=== PATIENT | male | born 1955 | race Caucasian/White ===

== ENCOUNTER 2017-02-14 12:36 | Inpatient (IN) | payer OTHER ==
--- NOTE | 2017-02-14 12:58 | CPEKG ---
Heart Rate: 134 RR Interval: 448 QRSD Interval: 102 QT Interval: 320 QTC Interval: 478 QRS [place] [facility]: 4 T Wave [facility]: 69 EKG Severity - ABNORMAL ECG - EKG Impression: ATRIAL FIBRILLATION EKG Impression: BORDERLINE PROLONGED QT INTERVAL Electronically Signed By: Ibrahima Ram 14-Feb-2017 20:35:31
[2017-02-14 13:24] LABS: % IMMATURE GRANULYOCYTES 1.9 % (0.0-1.1); ABSOLUTE IMMATURE GRANULOCYTES 0.18 10^3/uL (0.00-0.10); ADD DIFF? NO; ADD MORPH? NO; ADD SCAN? NO; ATYPICAL LYMPHOCYTE FLAG 50 (0-99); FRAGMENT RBC FLAG 0 (0-99); HEMATOCRIT 45.7 % (40.0-51.0); HEMOGLOBIN 16.2 g/dL (13.7-17.5); LEFT SHIFT FLG 10 (0-99); LIPEMIA HEMOLYSIS FLAG 90 (0-99); MEAN CELL HEMOGLOBIN CONCENTR. 35.4 g/dL (32.4-36.7); MEAN CELL VOLUME 95.8 fL (81.5-99.8); MEAN PLATELET VOLUME 9.7 fL (8.7-11.7); PLATELET CLUMPS FLAG 10 (0-99); PLATELET COUNT 113 10^3/uL (150-400); RED BLOOD CELL COUNT 4.77 10^6/uL (4.40-6.38); RED CELL DISTRIBUTION WIDTH 13.7 % (11.5-15.2)
[2017-02-14] MEDS ORDERED: DILTIAZEM 25 MG/5 ML VIAL IVP ONE (13:26)
[2017-02-14] MEDS ORDERED: ENOXAPARIN 120 MG/0.8 ML SYR SC ONE (13:27)
[2017-02-14 13:32] LABS: INR 1.56 (0.83-1.16); PROTIME(PATIENT) 18.7 SEC (12.0-15.0)
[2017-02-14 13:33] LABS: APTT 36.5 SEC (23.0-38.0)
--- NOTE | 2017-02-14 13:33 | EDPHY ---
H & P Stated Complaint: RUQ abd pain radiating to R shoulder Time Seen by Provider: 02/14/17 13:08 - Personal History Current Tetanus/Diphtheria Vaccine: Yes Current Tetanus Diphtheria and Acellular Pertussis (TDAP): Yes - Medical/Surgical History Hx Asthma: No Hx Chronic Respiratory Disease: No Hx Diabetes: No Hx Cardiac Disease: No Hx Renal Disease: No Hx Cirrhosis: Yes Hx Alcoholism: No Hx HIV/AIDS: No Hx Splenectomy or Spleen Trauma: No Other PMH: Hepatitis C, Chronic cirrhosis, cholecystectomy, R knee scope, tonsillectomy - Social History Smoking Status: Former smoker Constitutional: Initial Vital Signs Temperature (C) 36.8 C 02/14/17 12:52 Heart Rate 127 H 02/14/17 12:52 Respiratory Rate 14 02/14/17 12:52 Blood Pressure 119/103 H 02/14/17 12:52 O2 Sat (%) 93 02/14/17 12:52 O2 Delivery Mode Nasal Cannula O2 (L/minute) 2 Allergies/Adverse Reactions: No Known Allergies Allergy (Verified 02/14/17 12:51) Home Medications: Medication Instructions Recorded NK [No Known Home Meds] 02/14/17 Medical Decision Making ED Course/Re-evaluation: CHIEF COMPLAINT: Nausea and right shoulder pain HISTORY OF PRESENT ILLNESS: This patient presents the emergency department with for 5 days of nausea and 3 days of right shoulder pain. As we are checking him in realize that he was also and a rapid heart rhythm. Patient denies chest pressure chest pain chest tightness. The only pain is in the right shoulder and he calls it a soreness achiness or tightness. He denies pain in his neck or jaws or anywhere else in his extremities. He has never had symptoms like this before. He does not see any doctors. He is not on any medicines and denies any medical history. He does not believe that he has ever felt a rapid rhythm once I pointed out to him. REVIEW OF SYSTEMS: A 10 point review of systems was performed and is negative with the exception of the elements mentioned in the history of present illness. PHYSICAL EXAM: HR, BP, O2 Sat, RR. Temp noted General Appearance: Alert, well hydrated, appropriate, and non-toxic appearing. Head: Atraumatic without scalp tenderness or obvious injury Eyes: Pupils equal, round, reactive to light and accommodation, EOMI, no trauma , no injection. Ears: Clear bilaterally, no perforation, normal landmarks Nose: Atraumatic, no rhinorrhea, clear. Throat: There is no erythema or exudates, no lesions, normal tonsils, mucus membranes moist. Neck: Supple, 2+ carotid upstroke, nontender, no lymphadenopathy. Respiratory: No retractions, no distress, no wheezes, and no accessory muscle use. Lungs are clear to auscultation bilaterally. Cardiovascular: Irregularly irregular rate and rhythm at approximately 103,250 , no murmurs, rubs, or gallops. Bilateral carotid, radial, dorsalis pedis, and posterior tibial pulses intact. Good capillary refill all extremities. Gastrointestinal: Abdomen is soft, nontender, non-distended, no masses, no rebound, no guarding, no peritoneal signs. Musculoskeletal: Normal active ROM of all extremities, atraumatic. Neurological: Alert, appropriate, and interactive. The patient has normal DTRs and non-focal cranial nerves, motor, sensory, and cerebellar exam. Skin: No rashes, good turgor, no nodules on palpation. Past medical history: Patient denies Past surgical history: Cholecystectomy, hepatitis-C which she was told resolved he was diagnosed 16 years ago, chronic venous stasis changes right leg Family history: Denies any Cardiovascular history in first-degree relatives Social history: Single, employed, does not abuse tobacco drugs or alcohol DIAGNOSTICS/PROCEDURES/CRITICAL CARE TIME: The 12 lead EKG was interpreted by myself. See hard copy and/or "tracemaster" electronic copy for interpretation. Atrial fibrillation at a rate of between 130 in her 50 ventricular rate DIFFERENTIAL DIAGNOSIS: The differential diagnosis for the patient's narrow complex tachycardia included but was not limited to various causes of sinus tachycardia such as dehydration and medicines, SVT, atrial flutter, atrial fibrillation, pulmonary causes. MEDICAL DECISION MAKING: This patient appears to have a new onset atrial fibrillation. My guess is that it started 3-5 days ago when the patient 1st started getting a right shoulder ache and then subsequently developed nausea and loss of appetite. He has really no other symptoms at this time. I have given this patient 20 mg of diltiazem intravenously and started him on diltiazem drip. I also given him Lovenox 1 milligram/kilogram subcutaneously. I am waiting for his laboratory studies and I will consult Cardiology and the hospitalist for admission. Rate is significantly improved on diltiazem. Patient has chronic venous stasis changes the right leg and potentially a DVT. I am doing an ultrasound. Patient states that this is chronic. - Data Points Laboratory Results: Laboratory Results 02/14/17 13:05 02/14/17 13:05 02/14/17 02/14/17 02/14/17 13:05 13:05 13:05 WBC 9.53 10^3/uL H 10^3/uL (3.80-9.50) RBC 4.77 10^6/uL 10^6/uL (4.40-6.38) Hgb 16.2 g/dL g/dL (13.7-17.5) Hct 45.7 % % (40.0-51.0) MCV 95.8 fL fL (81.5-99.8) MCH 34.0 pg pg (27.9-34.1) MCHC 35.4 g/dL g/dL (32.4-36.7) RDW 13.7 % % (11.5-15.2) Plt Count 113 10^3/uL L 10^3/uL (150-400) MPV 9.7 fL fL (8.7-11.7) Neut % (Auto) 65.8 % % (39.3-74.2) Lymph % (Auto) 13.0 % L % (15.0-45.0) [place] % (Auto) 17.1 % H % (4.5-13.0) Eos % (Auto) 1.5 % % (0.6-7.6) Baso % (Auto) 0.7 % % (0.3-1.7) Nucleat RBC Rel Count 0.0 % % (0.0-0.2) Absolute Neuts (auto) 6.27 10^3/uL 10^3/uL (1.70-6.50) Absolute Lymphs (auto) 1.24 10^3/uL 10^3/uL (1.00-3.00) Absolute Monos (auto) 1.63 10^3/uL H 10^3/uL (0.30-0.80) Absolute Eos (auto) 0.14 10^3/uL 10^3/uL (0.03-0.40) Absolute Basos (auto) 0.07 10^3/uL 10^3/uL (0.02-0.10) Absolute Nucleated RBC 0.00 10^3/uL 10^3/uL (0-0.01) Immature Gran % 1.9 % H % (0.0-1.1) Immature Gran # 0.18 10^3/uL H 10^3/uL (0.00-0.10) PT 18.7 SEC H SEC (12.0-15.0) INR 1.56 H (0.83-1.16) APTT 36.5 SEC SEC (23.0-38.0) Sodium 130 mEq/L L mEq/L (134-144) Potassium 3.2 mEq/L L mEq/L (3.5-5.2) Chloride 94 mEq/L L mEq/L (97-110) Carbon Dioxide 26 mEq/l mEq/l (22-31) Anion Gap 10 mEq/L mEq/L (8-16) BUN 9 mg/dL mg/dL (7-23) Creatinine 0.7 mg/dL mg/dL (0.7-1.3) Estimated GFR > 60 Glucose 112 mg/dL H mg/dL (70-100) Calcium 7.3 mg/dL L mg/dL (8.5-10.4) Magnesium 1.8 mg/dL mg/dL (1.6-2.3) Troponin I < 0.012 ng/mL ng/mL (0.000-0.034) NT-Pro-B Natriuret Pep 3220 pg/mL H pg/mL (0-125) Medications Given: Discontinued Medications Diltiazem HCl (Cardizem 25 Mg/5 Ml Vial) 20 mg IVP EDNOW ONE Stop: 02/14/17 13:27 Last Admin: 02/14/17 13:45 Dose: 20 mg Enoxaparin Sodium (Lovenox) 120 mg SC EDNOW ONE Stop: 02/14/17 13:28 Last Admin: 02/14/17 14:07 Dose: 120 mg Diltiazem HCl 125 mg/ Dextrose 125 mls @ 0 mls/hr IV EDNOW ONE; As Directed PRN Reason: Protocol Stop: 02/14/17 13:27 Last Admin: 02/14/17 14:07 Dose: 125 mls Departure - Departure Disposition: [facility] Clinical Impression: New onset atrial fibrillation, Edema of right lower leg due to venous stasis Congestive heart failure Qualifiers: Congestive heart failure type: unspecified congestive heart failure type Congestive heart failure chronicity: acute Qualified Code(s): I50.9 - Heart failure, unspecified Condition: Fair
[2017-02-14 13:37] LABS: ANION GAP 10 mEq/L (8-16); CALCIUM 7.3 mg/dL (8.5-10.4); CARBON DIOXIDE 26 mEq/l (22-31); CHLORIDE 94 mEq/L (97-110); CREATININE 0.7 mg/dL (0.7-1.3); GLOMERULAR FILTRATION RATE > 60; GLUCOSE 112 mg/dL (70-100); MAGNESIUM 1.8 mg/dL (1.6-2.3); POTASSIUM 3.2 mEq/L (3.5-5.2); SODIUM 130 mEq/L (134-144)
[2017-02-14 13:46] LABS: TROPONIN I < 0.012 ng/mL (0.000-0.034)
[2017-02-14] MEDS: DILTIAZEM 125 MG in D5W 125 ML IV ONE ×2 (14:07→14:36)
[2017-02-14 14:43] LABS: ALBUMIN 2.7 g/dL (3.5-5.0); BILIRUBIN,TOTAL 7.6 mg/dL (0.1-1.4); BILIRUBIN-CONJUGATED 3.5 mg/dL (0.0-0.5); BILIRUBIN-UNCONJUGATED 4.1 mg/dL (0.0-1.1); TOTAL PROTEIN 6.8 g/dL (6.3-8.2)
[2017-02-14] MEDS ORDERED: ONDANSETRON 4 MG/2 ML VIAL IVP PRN (16:15)
[2017-02-14] MEDS ORDERED: PROMETHAZINE HCL 25 MG/ML INJ IVP PRN (16:15)
[2017-02-14] MEDS ORDERED: ONDANSETRON DISINTEGRATING 4 MG TAB PO PRN (16:15)
--- NOTE | 2017-02-14 16:50 | ECHO ---
[id number] + + [id number] : : [place] [phone] : : [phone] + + Adult Echocardiographic Report + + :Name: ERLIN BUSTAMANTEkleverjoselo Date: 02/14/2017 03:24 PM BP: 104/87 mmHg : : Hospital Admission Number: [id number] Location: bedsideHR: 100: :: 1955 Gender: Male Height: 71 in : :Age: 61 yrs Race: WH Weight: 290 lb : :Reason For Study: new afib elev bnp : : BSA: 2.5 meters2 : :History: new onset afib elev BNP : + + MMode/2D Measurements & Calculations IVSd: 1.1 cm RVDd: 3.4 cm FS: 28.3 % Ao root diam: LVPWd: 1.1 cm LVIDd: 4.5 cm EDV(Teich): 2.5 cm LVIDs: 3.2 cm 93.1 ml ESV(Teich): 42.1 ml EF(Teich): 54.8 % LVLd ap4: 8.7 cm SV(MOD-sp4): EDV(MOD-sp4): 110.0 ml 167.0 ml LVLs ap4: 7.0 cm ESV(MOD-sp4): 57.0 ml EF(MOD-sp4): 65.9 % Normal Measurement Values: + + :LVIDd (3.5-5.7cm) IVSd (0.6-1.1cm) LVPWd (0.6-1.1cm) Aortic Root (2.0-3.7cm)Left Atrium (1.5-4.0cm): :LV Vol(d) (76-115ml) LV Vol(s) (29-48ml) E[place]ec Fraction (50-65%)PV [place] (0.6- 1.2m/s) TV [place] (0.4-1.0m/s) : :MV E [place] (0.8-1.0m/s)MV A [place] (0.3-1.0m/s)LVOT [place] (0.7-1.2m/s) Asc Ao [place] ( 0.9-1.8m/s) : + + Doppler Measurements & Calculations MV E max kolton: Ao V2 max: LV V1 max: PA V2 max: 84.9 cm/sec 138.5 cm/sec 108.1 cm/sec 124.2 cm/sec Ao max PG: LV V1 max PG: PA max P.7 mmHg 4.7 mmHg 6.2 mmHg Left Ventricle The left ventricle is normal in size. There is mild concentric left ventricular hypertrophy. Diastolic Function Indeterminate due to afib.. Ejection Fraction = 60-65%. Right Ventricle The right ventricle is normal in size and function. Atria The left atrium is moderately dilated. The Left Atrial Volume is 43 ml/m2. The right atrium is mild to moderately dilated. Mitral Valve The mitral valve leaflets appear thickened, but open well. There is no mitral valve stenosis. There is mild mitral regurgitation. Tricuspid Valve The tricuspid valve is normal in structure and function. There is no tricuspid stenosis. There is trace tricuspid regurgitation. Aortic Valve The aortic valve is not well visualized. There is no aortic stenosis. There is no aortic insufficiency. Pulmonic Valve The pulmonic valve is not well visualized. Great Vessels The aortic root is normal size. Pericardium/Pleural There is no pericardial effusion. Conclusion A two-dimensional transthoracic echocardiogram with M-mode and Doppler was performed. The study was technically difficult. 1. The left ventricle is normal in size. There is mild concentric left ventricular hypertrophy. The Ejection Fraction = 60-65%. 2. There is biatrial enlargement. 3. The mitral valve leaflets appear thickened, but open well. There is mild mitral regurgitation. 4. The aortic valve is not well visualized. There is no aortic stenosis. There is no aortic insufficiency. 5. No old studies for comparison. Final Reading Physician: Harris Osuna MD electronically signed on 02/14/2017 04:49 PM Ordering Physician: Jaden Calix Performed By: Eva Galindo
[2017-02-14] MEDS ORDERED: DILTIAZEM 125 MG in D5W 125 ML IV SCH (17:00)
[2017-02-14] MEDS: ceFAZolin 2 GM/DEXTROSE 100 ML IV SCH (17:58)
[2017-02-14] MEDS ORDERED: VANCOMYCIN HCL/NORMAL SALINE 250 ML IV SCH (18:00)
[2017-02-14] MEDS ORDERED: FUROSEMIDE 20 MG/2 ML VIAL IVP ONE (18:15)
[2017-02-14] MEDS: POTASSIUM CL 20 MEQ/15 ML UDCUP PO SCH (18:38)
[2017-02-14] MEDS: oxyCODONE IR 5 MG TAB PO PRN ×2 (18:45→23:33)
--- NOTE | 2017-02-14 20:16 | GCON ---
[f rep st] CONSULTATION CARDIOLOGY CONSULTATION INDICATION FOR CARDIOLOGY CONSULTATION: Atrial fibrillation with rapid ventricular response. HISTORY OF PRESENT ILLNESS: The patient is a 61-year-old male reporting no significant past history of cardiac disease. Reporting he has been feeling somewhat fatigued and ill starting last Friday night. Reporting episodes of cold sweats, decreased appetite, and starting the last 2 days with some nausea. He also reports over the last 3 days developing right shoulder pain with movement. This has worsened to the point where he cannot elevate his upper extremity. He denies any history of chest pain, pressure, or worsening shortness of breath. Due to his ongoing symptoms, he came to the emergency department for further evaluation. Initial electrocardiogram was done showing he was in atrial fibrillation with rapid ventricular response with heart rates up to 135 beats per minute. He reports prior to last Friday night, he had been in his usual state of health. He does room admit living a very sedentary lifestyle, he does not follow up with physicians routinely. Reports not ever feeling any palpitations. Reports no orthopnea, PND. Does report he has chronic swelling of his lower extremities, and feels that it is worse in the last few days. Besides night sweats, he denies any fevers, chills. He denies any history of hematemesis or blood in stool. His cardiac risk factors include age, sex. He is uncertain about his cholesterol status due to not seeing a physician in multiple years. PAST MEDICAL HISTORY: He reports history of hepatitis C, chronic cirrhosis, cholecystectomy, right knee scoping, tonsillectomy, he does report history of GI bleed 2 years ago for which he was treated at [facility]. FAMILY HISTORY: He denies any significant coronary artery disease, reporting father of "old age in his 80s." Mother of kidney disease in her 70s. 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 He is a former smoker. He reports occasional alcohol use. Denies any illicit drug use. ALLERGIES: NO KNOWN DRUG ALLERGIES. HOME MEDICATIONS: The patient reports he does not take any home medications. REVIEW OF SYSTEMS: A 10-point Review of Systems done on this patient was all negative except as mentioned above. PHYSICAL EXAMINATION: GENERAL APPEARANCE: Medium build, morbidly obese male. He is alert and oriented to person, place, time, and situation. Appears to be under no acute distress at the time of my examination. VITAL SIGNS: Current blood pressure is 104/87, heart rate is 108 and atrial fibrillation on the monitor. Respirations 18, saturating 93% on room air. Temperature on admission was 36.8 degree Celsius. HEENT: Head is normocephalic. Lips and tongue are pink and moist with no signs of cyanosis. Conjunctivae pink. NECK: Trachea is midline, +2 carotid pulses bilateral, no auscultated bruits, no jugular vein distention. RESPIRATORY: Lungs clear, but diminished in bases bilateral. No rhonchi, rales or wheezes. No accessory muscle use, no intercostal muscle retraction noted. CARDIAC: Tachycardiac rate , irregular rhythm, S1, S2. 1/6 systolic murmur noted along the left sternal border. No S3, rubs, gallops or murmurs noted. ABDOMEN: Soft, obese, nontender, bowel sounds x4 quadrants. No organomegaly. No palpable masses. SKIN: Warm, dry, +3 peripheral edema bilateral lower extremities to knees. Right lower extremity at ankle, red and warm to the touch. No open wounds, no drainage. VASCULAR: +2 carotids bilateral, +2 radials bilateral, +1 posterior tibial pulses bilateral. Limited range of motion on right upper extremity, with extreme pain with adduction and rotation. LABORATORY STUDIES: WBC 9.53, hemoglobin of 16.2, hematocrit of 45.7, platelet count 113. INR 1.56. Sodium 130, potassium 3.2, chloride 94, CO2 26, BUN 9, creatinine 0.7, glucose 112, calcium 7.3, magnesium 1.8, total bilirubin 7.6, AST 58, ALT 49, alkaline phosphatase 130. Troponin less than 0.012. ProBNP 320. Total protein 6.8, albumin 2.7, lipase 45. STUDIES: Electrocardiogram as mentioned above. Chest x-ray on admission showing borderline CHF, fluid overload. Ultrasound of right lower extremity negative for DVT. Echocardiogram done on admission showing mild concentric LVH with EF of 60% to 65%, biatrial enlargement, mild MR, unable to read RVSP due to inadequate, tricuspid regurgitation. ASSESSMENT AND PLAN: Persistent atrial fibrillation with rapid ventricular response. Potentially this has been going on for at least the last few days, potentially longer. The patient has been started on diltiazem drip in the emergency department, which he has received better rate control. Patient denies any palpitations. Has had no symptoms suggestive of transient ischemic attack or cerebrovascular accident. He has been started on Lovenox therapy. Patient has a CHADS-VASc score of 1 right now for congestive heart failure due to elevated BNP. RECOMMENDATIONS: 1. Persistent atrial fibrillation:Continue him on current diltiazem drip for rate control, continue on current anticoagulation of Lovenox. If he has not broken to back to sinus rhythm tomorrow, then consideration of doing transesophageal echocardiogram cardioversion in the morning. 2. Diastolic heart failure: The patient noted with significant peripheral edema, BNP greater than 3000, and echocardiogram showing normal left ventricular ejection fraction with diastolic dysfunction. Patient reports mild shortness of breath. At this time, we will give him a small dose of Lasix therapy due to his blood pressure being mildly low since starting the diltiazem drip, systolic at 104, and evaluate. More than likely, the patient will require larger doses. More than likely, potentially part of the elevated BNP is due to his atrial fibrillation with rapid ventricular response, potentially will see improvement if he returns back to sinus rhythm. 3. Shortness of breath. Patient reporting shortness of breath, potentially caused by elevated BNP and atrial fibrillation, but he does have multiple cardiac risk factors, initial negative troponin, EKG shows no acute ST or T- wave abnormalities. We will cycle his troponins throughout the night. 4. Right lower extremity redness: Question possible dermatitis, discussed this with Dr. Pederson of hospital services. Right lower extremity ultrasound negative. She will plan on starting him on antibiotic therapy. 5. Obesity: Probably compounding to his atrial fibrillation and diastolic heart, will monitor his oxygen levels overnight, potentially may be beneficial for patient to undergo overnight sleep study as an outpatient. We discussed that this is a potential added risk factor for diastolic heart failure and atrial fibrillation with the patient and . 6. Right shoulder pain: Patient reporting right shoulder pain with movement, it appears it is not cardiac in nature. Patient has had a shoulder x-ray which shows degenerative changes. If no improvement overnight, consider orthopedic evaluation. Thank you for this consultation. We will be glad to follow along with you. I will make the patient n.p.o. after midnight in preparation for potential transesophageal echocardiogram cardioversion. /[id number]/MODL MTDD
[2017-02-14] MEDS: HYDROmorphONE/DILAUDID 1 MG/ML INJ IVP PRN (20:56)
[2017-02-14] MEDS: ENOXAPARIN 120 MG/0.8 ML SYR SC SCH (20:59)
[2017-02-14] MEDS ORDERED: POTASSIUM CL 20 MEQ/15 ML UDCUP PO ONE (21:00)
--- NOTE | 2017-02-14 23:52 | GHP ---
[f rep st] HISTORY AND PHYSICAL DATE OF ADMISSION: 02/14/2017 CHIEF COMPLAINT: Shoulder pain. HISTORY OF PRESENT ILLNESS: This is a 61-year-old man with past medical history of hepatitis C and c irrhosis who has very limited doctor followup who presents complaining of 3 days of right shoulder pa in. He notes that he has only limited ability to move his right arm due to the pain. On evaluation in the emergency room, he was found to be in atrial fibrillation with rapid ventricular response. He states he believes he has had this in the past though he is not entirely sure. He also was noted to have a swollen and erythematous right lower extremity that on ultrasound did not have a DVT present. The patient denies fevers but does state that he had significant chills 2 days ago. He denies any chest pain or palpitations. He does acknowledge that he has had some shortness of breath, but denies orthopnea or PND. It is noted on examination the patient is quite a poor historian and seems to hav e very limited insight into his medical condition. PAST MEDICAL HISTORY: 1. Hepatitis C. 2. Reportedly cirrhosis although patient is unaware of this. 3. GI bleed. PAST SURGICAL HISTORY: 1. Cholecystectomy. 2. Right knee scope. 3. Tonsillectomy. 4. Cholecystectomy. FAMILY HISTORY: Denies coronary disease in the family. SOCIAL HISTORY: The patient is . His accompanies him here today. 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 Prior history of smoking and only occasional alcohol use. He denies il licit drug use. REVIEW OF SYSTEMS: A 10-point review of systems obtained and negative, except as per History of Pres ent Illness. MEDICATIONS: The patient denies any home medications. ALLERGIES: No known drug allergies. PHYSICAL EXAM: VITAL SIGNS: BP 108/77, heart rate 105, respiratory rate 19, O2 SATs 95% on 2 L. Te mperature 36.6. GENERAL APPEARANCE: This is an obese man. He is awake and alert. He is in no acut e distress. EYES: Anicteric. HENT: Oropharynx clear. CARDIOVASCULAR: Irregularly irregular, tac hy, no MRG. PULMONARY: Decreased breath sounds at the bases with some crackles, normal work of renee thing. ABDOMEN: Obese soft, nontender. EXTREMITIES: Right lower extremity. Beefy red, warm, and swollen compared to the left. Approximately 1 to 2+ pitting edema. SKIN: Warm, dry, well perfused other than as above. NEURO/PSYCH: The patient is quite distracted while I am talking to him, and se ems to have issues perhaps with memory. CLINICAL DATA: Labs reviewed. Notable for white blood cell count of 9.5, platelets of 113. INR is 1.56. Chemistry is notable for a sodium of 130, potassium 3.2. ProBNP is 3,220. Bilirubin is eleva jonathon at 7.6. Alkaline phosphatase of 132. Shoulder x-ray, personally reviewed and interpreted just shows chronic degenerative changes. Extremity ultrasound shows no DVT in the right lower extremity. Chest x-ray, personally reviewed and interpreted, shows findings of fluid overload consistent with CH F. EKG, personally reviewed and interpreted, shows atrial fibrillation with rapid ventricular response. Rate in the 130s. Echocardiogram with diastolic dysfunction and ejection fraction of 60-65%. ASSESSMENT AND PLAN: This is a 61-year-old man, past medical history of hepatitis C and cirrhosis, p resenting with shoulder pain and atrial fibrillation with rapid ventricular response. 1. Atrial fibrillation with rapid ventricular response. Sounds as if patient may have had this issu e in the past though he is not entirely sure. He has been started on diltiazem drip and rate control is improved. He will be started on treatment dose Lovenox. Etiology for his atrial fibrillation po ssibly related to decompensated diastolic heart failure versus contribution of cellulitis and infecti on. Plan will be for possible cardioversion in the morning if he does not convert on his own. Cardi ology is following. 2. Right lower extremity cellulitis. Again, patient has a beefy red, warm, swollen right lower extr emity compared to his left. Undoubtedly, there is some component of chronic venous stasis but do not feel that totally explains this asymmetrical redness and swelling. Blood cultures have been drawn a nd patient will be started on Ancef dosed at 2 g q. 8 given his weight. 3. Right shoulder pain. No obvious abnormalities on exam and shoulder x-ray showing only degenerati ve change. I do not suspect this is related to his cardiac issues. Query rotator cuff injury and co uld consider further imaging such as CT or MRI if pain is not improving overnight. Will ask PT and O T to evaluate. 4. Decompensated diastolic heart failure. Patient presenting with a BNP of 3000, pulmonary edema an d lower extremity edema. He will be started on Lasix though this will need to be started slow initia lly given slightly low blood pressures while on the diltiazem drip. Again, Cardiology is following. 5. Morbid obesity. Patient with a BMI of 40. Certainly at risk for sleep apnea and other obesity r elated complications. Recommend that he have a sleep study as an outpatient. 6. Cirrhosis. This is reported on his past medical history. He does have a bilirubin of 7.6 with a n unknown baseline. Will attempt to obtain records, though it is clear in speaking to him where he h as had his care in the past. Will trend his LFTs while in-house and will obtain an ultrasound of his right upper quadrant for further evaluation. DISPOSITION: Inpatient status. Given multiple active medical problems, suspect patient will need gr eater than 48 hours stay for evaluation and management of above. Patient is new to my care. Old records reviewed, summarized as per HPI and past medical history. Ca re plan reviewed with Cardiology including plans for possible cardioversion in the morning. /[id number]/MODL
[2017-02-15] MEDS: HYDROmorphONE/DILAUDID 1 MG/ML INJ IVP PRN (01:39)
[2017-02-15] MEDS: ceFAZolin 2 GM/DEXTROSE 100 ML IV SCH ×5 (01:39→21:57)
[2017-02-15 02:16] LABS: ABSOLUTE NRBC COUNT 0.02 10^3/uL (0-0.01); ADD DIFF? YES; ADD MORPH? NO; ADD SCAN? NO; ATYPICAL LYMPHOCYTE FLAG 90 (0-99); FRAGMENT RBC FLAG 0 (0-99); HEMOGLOBIN 15.3 g/dL (13.7-17.5); LEFT SHIFT FLG 20 (0-99); LIPEMIA HEMOLYSIS FLAG 90 (0-99); MEAN CELL HEMOGLOBIN 34.5 pg (27.9-34.1); MEAN CELL HEMOGLOBIN CONCENTR. 35.6 g/dL (32.4-36.7); MEAN CELL VOLUME 96.8 fL (81.5-99.8); MEAN PLATELET VOLUME 9.6 fL (8.7-11.7); NRBC-AUTO% 0.2 % (0.0-0.2); PLATELET CLUMPS FLAG 0 (0-99); PLATELET COUNT 134 10^3/uL (150-400); RED BLOOD CELL COUNT 4.44 10^6/uL (4.40-6.38); RED CELL DISTRIBUTION WIDTH 14.2 % (11.5-15.2)
[2017-02-15 02:31] LABS: ALANINE AMINOTRANSFERASE 47 IU/L (21-72); ALBUMIN 2.6 g/dL (3.5-5.0); ALKALINE PHOSPHATASE 118 IU/L (38-126); ANION GAP 9 mEq/L (8-16); ASPARTATE AMINOTRANSFERASE 46 IU/L (17-59); BILIRUBIN,TOTAL 7.4 mg/dL (0.1-1.4); BILIRUBIN-CONJUGATED 3.8 mg/dL (0.0-0.5); BILIRUBIN-UNCONJUGATED 3.6 mg/dL (0.0-1.1); CALCIUM 6.9 mg/dL (8.5-10.4); CARBON DIOXIDE 27 mEq/l (22-31); CHLORIDE 95 mEq/L (97-110); CREATININE 0.7 mg/dL (0.7-1.3); GLOMERULAR FILTRATION RATE > 60; GLUCOSE 131 mg/dL (70-100); POTASSIUM 3.4 mEq/L (3.5-5.2); SODIUM 131 mEq/L (134-144); TOTAL PROTEIN 6.3 g/dL (6.3-8.2)
[2017-02-15] MEDS: ACETAMINOPHEN 325 MG TAB PO PRN (02:43)
[2017-02-15] MEDS: oxyCODONE IR 5 MG TAB PO PRN ×3 (02:44→21:17)
[2017-02-15 04:12] LABS: PLATELET ESTIMATE DECREASED (ADEQ)
[2017-02-15] MEDS ORDERED: PROTOCOL POTASSIUM 1 DOSE MISC PRN (09:59)
[2017-02-15] MEDS ORDERED: POTASSIUM CL 10 MEQ TAB PO ONE (10:04)
[2017-02-15] MEDS: traMADol 50 MG TAB PO PRN (10:33)
[2017-02-15] MEDS: ENOXAPARIN 120 MG/0.8 ML SYR SC SCH ×2 (10:34→21:17)
[2017-02-15] MEDS: POTASSIUM CL 20 MEQ/15 ML UDCUP PO SCH (10:41)
--- NOTE | 2017-02-15 11:16 | SOAPPROG ---
SOAP Progress Note Assessment/Plan: Assessment: The patient has had ongoing shoulder pain. This does not look like a focal neurologic deficits such as a stroke. He has good control of his fingers he has good strength in his hand but he has terrible range of motion with the shoulder. He did have fevers and chills coming in now he has A positive blood culture. We will see what the blood culture results come back as and watch him closely. He has no symptoms from his atrial fibrillation he is being anticoagulated and he is not having complications from the atrial fibrillation so we will hold off cardioversion today. I have discussed this with the hospitalists carefully and we both agreed to take our time with about managing his current problems and especially if he has a infection in his shoulder that caused him now to have positive blood cultures we would want to be careful in we do to him and which order. We will do an outpatient evaluation for coronary artery disease because of his presentation with atrial fibrillation because of his age because of his risk factors. He is fairly immobile he is markedly obese and certainly has metabolic issues. He also has significant liver disease. I have talked to him about this and answered all his questions. If he develops any other issues a we can change our plans at any time. Plan: 02/15/17 11:20 Subjective: he continues w r shoulder pain no cp no mpalpitations no fever today . no new neuro nissues he is takinf his meds is rec lovenox no bleeding issues . Objective: Vital Signs Temp Pulse Resp BP Pulse Ox 36.9 C 97 17 91/68 L 97 02/15/17 08:00 02/15/17 08:00 02/15/17 08:00 02/15/17 08:00 02/15/17 08:00 Laboratory Results 02/15/17 02:00 02/15/17 02:00 02/14/17 02/15/17 02/16/17 05:59 05:59 05:59 Intake Total 440 Output Total 350 Balance 90 PT 18.7 SEC (12.0-15.0) H 02/14/17 13:05 INR 1.56 (0.83-1.16) H 02/14/17 13:05 Microbiology 02/14/17 17:45 Blood Blood Culture - Preliminary Laboratory Tests 02/14/17 02/14/17 02/14/17 12:05 13:05 13:05 WBC 9.53 H MCH 34.0 Plt Count 113 L Absolute Nucleated RBC 0.00 Seg Neutrophils % Band Neutrophils % Lymphocytes % Monocytes % Absolute Seg Neuts Absolute Band Neuts Total Bilirubin 7.6 H Conjugated Bilirubin 3.5 H Unconjugated Bilirubin 4.1 H Troponin I < 0.012 NT-Pro-B Natriuret Pep 3220 H Albumin 02/14/17 02/15/17 02/15/17 19:50 02:00 02:00 WBC 12.90 H MCH 34.5 H Plt Count 134 L Absolute Nucleated RBC 0.02 H Seg Neutrophils % 64 Band Neutrophils % 2 Lymphocytes % 12 Monocytes % 19 Absolute Seg Neuts 8.26 H Absolute Band Neuts 0.26 Total Bilirubin Conjugated Bilirubin Unconjugated Bilirubin Troponin I < 0.012 < 0.012 NT-Pro-B Natriuret Pep Albumin 02/15/17 02:00 WBC MCH Plt Count Absolute Nucleated RBC Seg Neutrophils % Band Neutrophils % Lymphocytes % Monocytes % Absolute Seg Neuts Absolute Band Neuts Total Bilirubin 7.4 H Conjugated Bilirubin 3.8 H Unconjugated Bilirubin 3.6 H Troponin I NT-Pro-B Natriuret Pep Albumin 2.6 L Physical Exam - Physical Exam General Appearance: alert, moderate distress Respiratory: rhonchi, No wheezing, No prolonged expiration Cardiac/Chest: edema, systolic murmur, irregularly irregular, No JVD Abdomen: non-tender, soft, No organomegaly Skin: mottled Neuro/Psych: normal mood/affect ICD10 Worksheet Patient Problems: Problems Problem Status Onset Congestive heart failure Acute Edema of right lower leg due to venous stasis Acute New onset atrial fibrillation Acute
[2017-02-15] MEDS ORDERED: VANCOMYCIN 1.25 GM in D5W 250 ML IV SCH (12:00)
[2017-02-15] MEDS ORDERED: BACITRACIN 50,000 UNITS/10 ML SYR IRR ONE (12:25)
[2017-02-15] MEDS ORDERED: POLYMYXIN B SULFATE 500,000 UNIT/10 ML SYR IRR ONE (12:25)
[2017-02-15] MEDS ORDERED: BUPIVACAINE/EPI 0.5% 30 ML SDV ONE (12:25)
[2017-02-15] MEDS ORDERED: PROPOFOL/EMULSION 500 MG/50 ML BOTTLE IV ONE (13:00)
[2017-02-15] MEDS ORDERED: REMIFENTANIL HCL 1 MG VIAL ONE (13:00)
[2017-02-15] MEDS ORDERED: MIDAZOLAM 2 MG/2 ML VIAL ONE (13:15)
--- NOTE | 2017-02-15 13:22 | PDANEPAE ---
ANE History of Present Illness Right shoulder arthroscopy Septic shoulder ANE Past Medical History - Cardiovascular History Hx Chest Pain: No Hx Coronary Artery / Peripheral Vascular Disease: No Hx Palpitations: Yes - Pulmonary History Hx Oxygen in Use at Home: No Hx Sleep Apnea: No - Endocrine History Hx Diabetes: No Hypothyroid: No Hyperthyroid: No - Liver History Hx Hepatic Disorders: Yes - Surgical History Prior Surgeries: Lap radha Difficult airway ANE Review of Systems Review of Systems: - Exercise capacity METS (RN): 3 METS - Systems Cardiac: Reports: irregular heart rate (A fib now Rapid venticular) Respiratory: Reports: shortness of breath ANE Patient History - Allergies Allergies/Adverse Reactions: No Known Allergies Allergy (Verified 02/14/17 12:51) - Home Medications Home Medications: NK [No Known Home Meds] 02/14/17 [Last Taken Unknown] - Anes Hx Hx Anesthesia Complications (with details): Difficult airway. One year ago lap radha awakened and awake intubation - Smoking Hx Smoking Status: Former smoker - Alcohol Use Alcohol Use: Rarely - Family Anes Hx Family Anes Hx: none ANE Labs/Vital Signs - Labs Result Diagrams: 02/15/17 02:00 02/15/17 02:00 - Vital Signs Blood Pressure: 109/76 Heart Rate: 84 Respiratory Rate: 17 O2 Sat (%): 97 Height: 180.34 cm Weight: 126.9 kg ANE Physical Exam - Airway Neck exam: decreased ROM, short neck Mallampati Score: Class 4 Mouth exam: small mouth opening - Cardiovascular Cardiovascular: irregularly irregular, edema - ASA Status ASA Status: IV, E ANE Anesthesia Plan Anesthesia Plan: general endotracheal anesthesia Specialized Airway: fiberoptic intubation
--- NOTE | 2017-02-15 13:36 | ASMTCMCOM ---
CM Note CM Note Notes: Pt. is 61-year-old man admitted with new onset Afib and CHF. Pt. has decompensated diastolic heart failure, morbid obesity, cirrhosis, Hep C, and a hx. of a GI bleed. Pt. lives w/ his . Pt's d/c plan is TBD at this time. CM to follow. Date Signed: 02/15/2017 01:36 PM Electronically Signed By:Erika Perera LCSW
--- NOTE | 2017-02-15 14:13 | GCON ---
[f rep st] CONSULTATION CHIEF COMPLAINT: Right shoulder pain. HISTORY OF PRESENT ILLNESS: The patient is a 61-year-old, right-hand dominant gentleman, who has mul tiple medical problems, including history of hepatitis C, and presented with 3 day onset of acute rig ht shoulder pain. States he has limited ability to move his arm, and denies any recent illness or tr auma. He denies any specific right shoulder complaints prior to this. He states he also noticed willard e fevers and chills, approximately 2 days ago. Denies any current chest pain, or shortness of breath . He has been admitted to the hospital on 02/14 for his shoulder pain. He denies any other focal ex tremity concerns at this time. PAST MEDICAL HISTORY: Hepatitis C, gastroesophageal bleeding. PAST SURGICAL HISTORY: Cholecystectomy, right knee scope, tonsillectomy, cholecystectomy. ALLERGIES: The patient denies allergies, no known drug allergies. SOCIAL HISTORY: He is . His is with him in the room, as are relatives. He is retired. He has minimal prior alcohol use, and no current tobacco. OBJECTIVELY: GENERAL: This is a morbidly obese gentleman, pleasant and cooperative with examination . VITAL SIGNS: Blood pressure is 109/76, pulse is 84, respiratory rate is 17, he is 97% on 3 L. Hi s temperature max for 24 hours is 37.0. His current temperature is 36.7, white count is 12.9. HEENT : Normocephalic, atraumatic. EXTREMITIES: He has no obvious swelling, surgical scars or ecchymosis over his right shoulder, he is minimally tender to the touch. He has gross crepitation with range o f motion. Either actively or passively. This elicits discomfort across his right shoulder, he has n o elbow or wrist tenderness. Left upper extremity demonstrates no tenderness with active shoulder, e lbow, wrist range of motion. He has active range of motion of bilateral hips, knees, and ankles with out focal increased complaint. He has pitting edema to both lower extremities. IMPRESSION: Septic right shoulder, plus shoulder arthritis. PLAN: Given the clinical setting of increased white count, increased shoulder pain. History of feve r and chills, and positive bacteremia for methicillin sensitive Staph aureus. I have recommended irr igation and debridement of his shoulder arthroscopically. Adequate cultures and fluid samples can be obtained from this and definitive treatment at the same time. I do feel he has extensive additional pathology with large bone on bone arthritis, and possible rotator cuff pathology. I have with him that this will not be addressed by the arthroscopic washout. He understands this and wishe d to proceed. Appropriate consent will be signed and placed in patient's chart. Copy requested to: PCP /[id number]/MODL
[2017-02-15] MEDS ORDERED: ROCURONIUM 50 MG/5 ML VIAL ONE (14:24)
[2017-02-15] MEDS ORDERED: LIDOCAINE 2% 5 ML SDV ONE ×5 (14:25)
[2017-02-15] MEDS ORDERED: GLYCOPYRROLATE 0.2 MG/1 ML VIAL ONE (14:25)
[2017-02-15] MEDS ORDERED: ONDANSETRON 4 MG/2 ML VIAL ONE ×2 (14:25)
[2017-02-15] MEDS ORDERED: fentaNYL 100 MCG/2 ML INJ ONE ×2 (14:26→15:41)
[2017-02-15] MEDS ORDERED: NALOXONE HCL 0.4 MG/ML INJ IVP PRN (15:30)
[2017-02-15] MEDS ORDERED: fentaNYL 100 MCG/2 ML INJ IVP PRN (15:30)
--- NOTE | 2017-02-15 16:06 | ASMTCMCOM ---
CM Note CM Note Notes: ID let SWer know today that Pt. will need IV antibiotics at d/c. Details unknown at this time. CM to follow up for d/c POC. Date Signed: 02/15/2017 04:06 PM Electronically Signed By:Erika Perera LCSW
--- NOTE | 2017-02-15 17:05 | HOSPPROG ---
Hospitalist Progress Note Assessment/Plan: * MSSA sepsis due to septic right shoulder -s/p washout in OR with Dr. Aguayo -IV ancef - ID to consult * Rapid afib -cardioversion on hold due to need for OR -rate control IV diltiazem -resume anti-coagulation in am if no post-op bleeding * Cirrhosis/ Hep C -abd US pending -volume overload - lasix as tolerated * Possible RLE cellulitis -per patient these changes are relatively chronic * Morbid obesity BMI 40 Subjective: severe right shoulder pain all night, IV dilaudid given but still severe severe pain Objective: Vital Signs Temp Pulse Resp BP Pulse Ox 36.4 C 112 H 10 L 131/92 H 95 02/15/17 16:25 02/15/17 16:25 02/15/17 16:25 02/15/17 16:25 02/15/17 16:25 Microbiology 02/15/17 Unknown Gram Stain - Final Shoulder - Aspirate Laboratory Results 02/15/17 02:00 02/15/17 02:00 02/14/17 02/15/17 02/16/17 05:59 05:59 05:59 Intake Total 440 1300 Output Total 350 255 Balance 90 1045 PT 18.7 SEC (12.0-15.0) H 02/14/17 13:05 INR 1.56 (0.83-1.16) H 02/14/17 13:05 d/w Dr. Aguayo, Deann and Remington regarding complex plan of rapid afib and septic right shoulder Right shoulder xray - negative head CT negative - Physical Exam Constitutional: no apparent distress, appears nourished, not in pain Cardiovascular: regular rate and rhythym, no murmur, rub, or gallop Respiratory: no respiratory distress, no rales or rhonchi, clear to auscultation Gastrointestinal: normoactive bowel sounds, soft, non-tender abdomen, no palpable masses Skin: no rashes or abrasions, no fluctuance, no induration, erythema (RLE - looks chronic) Neurologic: AAOx3, sensation intact bilaterally Psychiatric: interacting appropriately, not anxious, not encephalopathic, thought process linear ICD10 Worksheet Patient Problems: Problems Problem Status Onset Congestive heart failure Acute Edema of right lower leg due to venous stasis Acute New onset atrial fibrillation Acute
[2017-02-15] MEDS ORDERED: KETOROLAC 30 MG/1 ML SDV IVP ONE (18:21)
[2017-02-15 18:48] LABS: POTASSIUM 4.1 mEq/L (3.5-5.2)
[2017-02-16 04:31] LABS: ABSOLUTE NRBC COUNT 0.03 10^3/uL (0-0.01); ADD DIFF? YES; ADD MORPH? NO; FRAGMENT RBC FLAG 0 (0-99); HEMATOCRIT 41.7 % (40.0-51.0); HEMOGLOBIN 14.4 g/dL (13.7-17.5); LEFT SHIFT FLG 40 (0-99); LIPEMIA HEMOLYSIS FLAG 90 (0-99); MEAN CELL HEMOGLOBIN 33.9 pg (27.9-34.1); MEAN CELL HEMOGLOBIN CONCENTR. 34.5 g/dL (32.4-36.7); MEAN CELL VOLUME 98.1 fL (81.5-99.8); MEAN PLATELET VOLUME 9.6 fL (8.7-11.7); NRBC-AUTO% 0.2 % (0.0-0.2); PLATELET CLUMPS FLAG 0 (0-99); PLATELET COUNT 196 10^3/uL (150-400); RED BLOOD CELL COUNT 4.25 10^6/uL (4.40-6.38); RED CELL DISTRIBUTION WIDTH 14.6 % (11.5-15.2)
[2017-02-16 04:40] LABS: ADD SCAN? NO; ATYPICAL LYMPHOCYTE FLAG 140 (0-99)
[2017-02-16 04:41] LABS: ALANINE AMINOTRANSFERASE 32 IU/L (21-72); ALBUMIN 2.7 g/dL (3.5-5.0); ALKALINE PHOSPHATASE 110 IU/L (38-126); ANION GAP 11 mEq/L (8-16); ASPARTATE AMINOTRANSFERASE 38 IU/L (17-59); BILIRUBIN,TOTAL 5.1 mg/dL (0.1-1.4); BILIRUBIN-CONJUGATED 2.4 mg/dL (0.0-0.5); BILIRUBIN-UNCONJUGATED 2.7 mg/dL (0.0-1.1); CALCIUM 6.9 mg/dL (8.5-10.4); CARBON DIOXIDE 25 mEq/l (22-31); CHLORIDE 95 mEq/L (97-110); CREATININE 1.3 mg/dL (0.7-1.3); GLOMERULAR FILTRATION RATE 56; GLUCOSE 122 mg/dL (70-100); POTASSIUM 3.9 mEq/L (3.5-5.2); SODIUM 131 mEq/L (134-144); TOTAL PROTEIN 6.4 g/dL (6.3-8.2)
[2017-02-16] MEDS: ceFAZolin 2 GM/DEXTROSE 100 ML IV SCH ×3 (05:32→21:51)
[2017-02-16 06:54] LABS: PLATELET ESTIMATE ADEQUATE (ADEQ); POLYCHROMASIA 1+
--- NOTE | 2017-02-16 07:00 | GOP ---
[f rep st] OPERATIVE REPORT DATE OF OPERATION: 02/15/2017 SURGEON: Topher Aguayo MD HEAD OF GEOGRAPHY: Preoperative. PREOPERATIVE DIAGNOSIS: Right septic shoulder. POSTOPERATIVE DIAGNOSIS: PROCEDURE PERFORMED: Irrigation and debridement-arthroscopic right septic shoulder. FINDINGS: SPECIMENS: To pathology, the fluid samples from the shoulder. INDICATIONS: The patient is a 61-year-old, right-hand dominant, gentleman who presented to the emerg ency department with a 3-day history of increasing sharp right shoulder pain, history of fevers and c hills. He is admitted to the hospital floor. He had developed bacteremia with positive blood cultur es. White count was elevated to greater than 12. Given the clinical scenario, I have recommended op erative irrigation and debridement for obtaining fluid cultures and cleansing his right shoulder. He understood the risks, benefits, alternatives, and wished to proceed. Written consent was signed and placed in patient's chart. DESCRIPTION OF PROCEDURE: Patient was identified in the preanesthesia area. The right shoulder nikhil rly demarcated as the operative site with indelible marker. He was given no additional antibiotics a s he is continued on Ancef for methicillin sensitive Staph aureus bacteremia. In the OR and awake, i ntubation was performed given his morbid obesity. He was positioned in a semi recumbent position and turned partial laterally to his left side. This allowed excellent exposure to the right shoulder. The right shoulder was sterilely prepped and draped in the usual fashion. Standard arthroscopic port al sites created across the anterior posterior aspect of the shoulder. Diagnostic arthroscopy ensued . The glenohumeral joint demonstrated grade 4 chondral loss with [id number] articulation in the ce ntral joint. There was gross thinning of the remaining cartilage. The labrum was grossly frayed. T here was high-grade tearing through the distal supraspinatus with a 2 cm full-thickness rotator cuff tear. The biceps tendon was intact but demonstrated fraying at the origin of the labrum, and the inf erior axillary recess was free of any loose or foreign debris. Upon entry into the shoulder joint, t here was approximately 10 cc of grossly turbid yellow fluid which was evacuated and sent for Gram sta in, culture and analysis. The shoulder was then irrigated as sequential debridement was carried out of the soft tissues with a total of 9 L of sterile saline containing antibiotics under pressure. A 1 0-Japanese drain was then placed across the anterior aspect across the portal and sutured into place. The posterior portal was closed. The skin incisions were instilled with 10 cc of 0.5% Marcaine with epinephrine. A sterile dressing was applied. The patient was awakened, taken to the recovery room i n good, stable condition. TOTAL TOURNIQUET TIME: None. COMPLICATIONS: None. DISPOSITION: To the recovery room then the floor. He will continue with the bulb suction drainage f or approximately 48 hours and on IV antibiotics. Infectious Disease has been notified and will follo w his course clinically. /[id number]/MODL
[2017-02-16] MEDS ORDERED: POTASSIUM CL 10 MEQ TAB PO ONE ×2 (07:14→19:45)
[2017-02-16 07:24] LABS: SMUDGE CELLS 1+
[2017-02-16] MEDS: oxyCODONE IR 5 MG TAB PO PRN ×2 (08:07→14:13)
[2017-02-16] MEDS: ENOXAPARIN 120 MG/0.8 ML SYR SC SCH (08:10)
[2017-02-16] MEDS: POTASSIUM CL 20 MEQ/15 ML UDCUP PO SCH (08:33)
--- NOTE | 2017-02-16 09:25 | SOAPPROG ---
SOAP Progress Note Assessment/Plan: Assessment: septic right shoulder s/p i and d Plan:d/c drain tomorrow am rom as vinh continue iv abx no other joint involvement currently 02/16/17 09:23 Subjective: improved still sore no other focal joint complaint Objective: Vital Signs Temp Pulse Resp BP Pulse Ox 36.6 C 78 18 128/74 H 92 02/16/17 08:00 02/16/17 08:00 02/16/17 08:00 02/16/17 08:00 02/16/17 08:00 Microbiology 02/15/17 Unknown Gram Stain - Final Shoulder - Aspirate Laboratory Results 02/16/17 03:50 02/16/17 03:50 02/15/17 02/16/17 02/17/17 05:59 05:59 05:59 Intake Total 440 1961 Output Total 350 425 Balance 90 1536 PT 18.7 SEC (12.0-15.0) H 02/14/17 13:05 INR 1.56 (0.83-1.16) H 02/14/17 13:05 dressing intact hv with thin serrousanguinous drainage limited active rom ICD10 Worksheet Patient Problems: Problems Problem Status Onset Congestive heart failure Acute Edema of right lower leg due to venous stasis Acute New onset atrial fibrillation Acute
[2017-02-16] MEDS: DILTIAZEM CD 120 MG CAP PO SCH (09:26)
--- NOTE | 2017-02-16 09:26 | PDIAF ---
- Diagnosis Diagnosis: right septic shoulder Code Status: Full Code - Medication Management Discharge Medications: Medications to Continue on Transfer NK [No Known Home Meds] 02/14/17 [Last Taken Unknown] Discharge Medications: Refer to the Discharge Home Medication list for PRN reason. - Orders Activity/Weight Bearing Restrictions: right shoulder. rom. wbat. daily dressing changes. no soaking may shower without bandage - Follow Up Care Current Providers and Referrals: NONE *PRIMARY CARE P,. [Primary Care Provider] - As per Instructions
--- NOTE | 2017-02-16 11:13 | SOAPPROG ---
JORGE Progress Note Assessment/Plan: Assessment: Plan: 02/15/17 11:20 02/16/17 11:13 Atrial fibrillation Obesity Hypertension Septic shoulder He has converted to normal sinus rhythm. He has had this shoulder debrided Cultures from that fluid are pending. He is taking his antibiotics and is much improved. I would keep him on full anticoagulation for 4 weeks longer. I want to see him in clinic and do a nuclear stress test. He has many significant factors for risk for coronary artery disease and he needs a full evaluation. He does not have to have this done in the hospital. He has not had anything to suggest acute coronary syndrome heart failure. He is not having pulmonary complications that might have led to his atrial fibrillation such as significant pathology involving embolic disease infection etc. His prognosis has to be guarded because he is quite inactive he is markedly obese he has many metabolic issues and he has got a septic shoulder and now has had procedure. Think we need to be very careful with him. I have discussed this case with the hospitalist. Also talked to his and answered her questions. Subjective: He has not been available in his room on several occasions when I went in to see him. I have talked to the staff and they say that he is feeling much better. His also I discussed his case with and she says he is very much improved Objective: Vital Signs Temp Pulse Resp BP Pulse Ox 36.6 C 88 18 120/64 92 02/16/17 08:00 02/16/17 09:26 02/16/17 08:00 02/16/17 09:26 02/16/17 08:00 Microbiology 02/15/17 Unknown Gram Stain - Final Shoulder - Aspirate Laboratory Results 02/16/17 03:50 02/16/17 03:50 02/15/17 02/16/17 02/17/17 05:59 05:59 05:59 Intake Total 440 1961 Output Total 350 425 Balance 90 1536 PT 18.7 SEC (12.0-15.0) H 02/14/17 13:05 INR 1.56 (0.83-1.16) H 02/14/17 13:05 Laboratory Tests 02/16/17 02/16/17 03:50 03:50 WBC 16.23 H RBC 4.25 L Absolute Seg Neuts 9.41 H Absolute Band Neuts 0.81 H Absolute Lymphocytes 3.08 H Absolute Monocytes 1.95 H Absolute Eosinophils 0.65 H Absolute Basophils 0.16 H Absolute Metamyelocyte 0.16 H BUN 28 H Creatinine 1.3 D Total Bilirubin 5.1 H Conjugated Bilirubin 2.4 H Unconjugated Bilirubin 2.7 H ICD10 Worksheet Patient Problems: Problems Problem Status Onset Congestive heart failure Acute Edema of right lower leg due to venous stasis Acute New onset atrial fibrillation Acute
--- NOTE | 2017-02-16 13:51 | WOCRNPDOC ---
WOCRN Advanced Assessment Note - Skin Integrity Problem, Advanced Assess Right Lower Leg Dressing Type: Open to Air Exudate Amount: None Exudate Characteristic(s): None Ashley Wound Tissue: Swollen (r/t cellulitis), Hemosiderin Staining, Venous Dermatitis, Scarred Skin Integrity Problem Comment: Nursing asked for wound care consult to address chronic edema in patient's BLE. Obvious venous insufficiency in patient's RLE, w / hemosiderin staining noted throughout the tissues. Presently, RLE measures 3cm larger at the calf than LLE, though I suspect this will subside as cellulitis in the RLE resolves. There does appear to be some scar tissue evident on the anterior aspect of the RLE, and patient reports having a wound there prior. Spoke with his about h/o compression, and she reports that patient has compression stockings, but they are "too tight." [facility], and this is noted in his discharge plans.
--- NOTE | 2017-02-16 14:31 | ASMTCMCOM ---
CM Note CM Note Notes: Chart reviewed, CM spoke w/ Dr. Zacarias, ID doctor to discuss POC. Pt will need 4wks of cefazolin 100ml@200 every q8hrs IV. Tenative d/c scheduled for Friday but unlikely pt will be ready at that time. Pt will most likely need HC and either come to outpatient infusion or referral needs to be made to [facility]. CM to follow. Date Signed: 02/16/2017 02:30 PM Electronically Signed By:JOE Costa
--- NOTE | 2017-02-16 16:21 | HOSPPROG ---
Hospitalist Progress Note Assessment/Plan: * MSSA severe sepsis due to septic right shoulder -s/p washout in OR with Dr. Aguayo -IV ancef * Rapid afib -converted overnight -start PO diltiazem -30 days anti-coagulation - start Eliquis -anti-coagulation cleared with ortho * Cirrhosis/ Hep C/ possible fatty liver disease -volume overload - start lasix/spironolactone -advise Etoh cessation * Possible RLE cellulitis -per patient these changes are relatively chronic * Morbid obesity BMI 40 * Metabolic encephalopathy due to infection - improved -check ammonia Subjective: Mental status much better today, but now somnolent s/p oxycodone 10mg Objective: Vital Signs Temp Pulse Resp BP Pulse Ox 36.7 C 87 12 138/67 H 97 02/16/17 15:52 02/16/17 15:52 02/16/17 15:52 02/16/17 15:52 02/16/17 15:52 Microbiology 02/15/17 Unknown Gram Stain - Final Shoulder - Aspirate Laboratory Results 02/16/17 03:50 02/16/17 03:50 02/15/17 02/16/17 02/17/17 05:59 05:59 05:59 Intake Total 440 1961 Output Total 350 425 Balance 90 1536 PT 18.7 SEC (12.0-15.0) H 02/14/17 13:05 INR 1.56 (0.83-1.16) H 02/14/17 13:[address] Macedo and Dr. Zacarias regarding plan of care tele reviewed - now back to [facility] - +cirrhosis - Physical Exam Constitutional: no apparent distress, appears nourished, not in pain Cardiovascular: regular rate and rhythym, no murmur, rub, or gallop Respiratory: no respiratory distress, no rales or rhonchi, clear to auscultation Gastrointestinal: normoactive bowel sounds, soft, non-tender abdomen, no palpable masses Skin: no rashes or abrasions, no fluctuance, no induration Neurologic: AAOx3, sensation intact bilaterally Psychiatric: interacting appropriately, not anxious, not encephalopathic, thought process linear ICD10 Worksheet Patient Problems: Problems Problem Status Onset Congestive heart failure Acute Edema of right lower leg due to venous stasis Acute New onset atrial fibrillation Acute
[2017-02-16] MEDS: APIXABAN 5 MG TAB PO SCH ×2 (17:19→21:46)
[2017-02-16] MEDS: ACETAMINOPHEN 325 MG TAB PO PRN (18:31)
[2017-02-16 18:36] LABS: POTASSIUM 3.8 mEq/L (3.5-5.2)
--- NOTE | 2017-02-16 19:06 | GCON ---
[f rep st] CONSULTATION DATE OF CONSULTATION: 02/16/2017 PROVIDER REQUESTING CONSULTATION: Lita Reyna MD REASON FOR CONSULTATION: MSSA bacteremia and right septic arthritis. HISTORY OF PRESENT ILLNESS: A 61-year-old male with a past medical history of hepatitis C, status in terferon and ribavirin over 10 years ago, but with known cirrhosis, who has not had significant medic al followup. Starting on February 09 or , he developed cold sweats, subjective fever, and the n gradually worsening right shoulder pain, which subsequently became so severe he could barely move h is right arm. He was seen in the emergency room. Patient was empirically started on IV cefazolin fo r possible right lower extremity cellulitis, and within 24 hours, blood cultures were positive for MS SA. Therefore, it was felt the shoulder was likely a septic arthritis, and the patient was taken to the OR 02/15/2017 for washout with synovial fluid showing gram-positive cocci on Gram stain and 2+ gr ew within 24 hours. Today patient subjectively feels improved with decreasing right shoulder pain. In addition, on admission, the patient had some diffuse abdominal pain with associated diarrhea, but this is improved today. PAST MEDICAL HISTORY: 1. History of hepatitis C status post interferon and ribavirin by Dr. Rosales Acharya at the [facility] approximately 10 years ago. Minimal followup since that time. 2. Gastric ulcer with GI bleed. PAST SURGICAL HISTORY: 1. Cholecystectomy. 2. Right knee scope. 3. Tonsillectomy. FAMILY HISTORY: Negative for coronary artery disease. SOCIAL HISTORY: Patient is 39 years. 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 Prior history of smoking, and patient uses alcohol once weekly. No ill icit drug use. He was born in [place] and has lived in [place] since 1974. They have 3 children and 2 pet pit bulls. No recent international travel. Patient reports that he has not sought medical care over the years due to concern over limited financial resources. MEDICATIONS: No home medications. Patient was started on cefazolin 2 g IV q.8 on admission, 017. Patient did get 1 dose of vancomycin with initial positive blood cultures. He is also on Ultra m 50 mg as needed, Phenergan, potassium, oxycodone, Zofran, Dilaudid, Lovenox, diltiazem 20 mg daily, and Tylenol. ALLERGIES: NKDA. REVIEW OF SYSTEMS: A complete 10-point review of systems was performed and is negative except as men tioned in the HPI PHYSICAL EXAMINATION: VITAL SIGNS: Blood pressure 128/74, heart rate 78, respiratory rate 18, satur ation 92% on 3 L, T current 36.4, T-max 37. GENERAL: This is an obese male, lying in bed. Slow to respond to questions, but answering questions appropriately. HEENT: He has no jaundice. Oropharynx is dry. Extensive prior dental work but no obvious dental caries. No oral ulcerations. NECK: Sup ple. No lymphadenopathy. CARDIOVASCULAR: Regular rate, 2/6 systolic murmur. CHEST: Decreased diana ath sounds in the bases. ABDOMEN: Obese. Query underlying ascites. Nontender. : No Jimenez. EX TREMITIES: Patient with extensive tattooing and right lower extremity with aiyana erythema that famil y reports has receded and was previously up to his knee. Right shoulder with dressing in place. LEONOR drain with serosanguineous fluid. Mild tenderness to palpation. Right hand inside channel account manager was intact. NEUROL OGIC: Alert and oriented x4. Moving all 4 extremities. As above, somewhat slow to respond to quest ions, but patient had just received a dose of pain medicine. LABORATORY: Sodium 131, potassium 3.9, chloride 95, CO2 25, BUN 28, creatinine 1.3, total bili 5.1 ( was previously 7.4), AST 38, ALT 32, alk phos 112, albumin 2.7. INR 1.5. White count 16.2, hematocr it 41, and platelets 196 with 58% neutrophils, 5% bands, 19% lymphocytes, 12% monocytes. On admissio n, his white count was 9.5 with platelets of 113. Cultures show 2 sets of blood cultures on r 15 with MSSA and joint aspirate on the 16th with Staph aureus. IMAGING: Abdominal ultrasound showed possible signs of portal hypertension with splenomegaly, but ul trasound was discontinued early due to shoulder pain. Right lower extremity DVT study was negative f or DVT. Head CT showed atrophy; otherwise, no focal abnormalities. ASSESSMENT AND PLAN: This is a 61-year-old male with a past history of hepatitis C with resultant ci rrhosis, who presents with sepsis. He was subsequently found to have methicillin-sensitive Staphyloc occus aureus bacteremia and right septic arthritis, source likely right lower extremity cellulitis; n ow significantly improved following antibiotics per family. No obvious wounds present. Initially on admission, patient had a mildly elevated white count at 9.5. Suspect this was an inappropriate resp onse, and today's white count of 16.23 is a more appropriate response. 1. Continue high-dose Ancef. 2. Slightly elevated creatinine today; will recheck tomorrow. 3. Reviewed need for at least 4 weeks of IV antibiotics with patient and his spouse at bedside. Rev iewed risks and benefits of PICC line placement and prolonged IV antibiotic therapy. Also stated the need for repeat blood cultures, and if persistently positive blood cultures, additional testing may be needed, such as transesophageal echo. 4. Will recheck hepatitis C viral load to assure persistent cure of hepatitis C. Nonetheless, edenilson roy appears to have signs of cirrhosis including prolonged INR, markedly elevated bilirubin, low album in, and splenomegaly. This underlying cirrhosis likely predisposed to this infection. Thank you for this consultation. We will continue to follow on a daily basis. /[id number]/MODL
[2017-02-16] MEDS: traMADol 50 MG TAB PO PRN (21:46)
[2017-02-17 04:14] LABS: ABSOLUTE NRBC COUNT 0.08 10^3/uL (0-0.01); ADD DIFF? YES; ADD MORPH? NO; FRAGMENT RBC FLAG 0 (0-99); HEMATOCRIT 34.4 % (40.0-51.0); HEMOGLOBIN 12.1 g/dL (13.7-17.5); LEFT SHIFT FLG 50 (0-99); LIPEMIA HEMOLYSIS FLAG 90 (0-99); MEAN CELL HEMOGLOBIN 34.5 pg (27.9-34.1); MEAN CELL HEMOGLOBIN CONCENTR. 35.2 g/dL (32.4-36.7); MEAN PLATELET VOLUME 9.3 fL (8.7-11.7); NRBC-AUTO% 0.8 % (0.0-0.2); PLATELET CLUMPS FLAG 0 (0-99); PLATELET COUNT 156 10^3/uL (150-400); RED BLOOD CELL COUNT 3.51 10^6/uL (4.40-6.38); RED CELL DISTRIBUTION WIDTH 14.2 % (11.5-15.2)
[2017-02-17 04:16] LABS: ADD SCAN? NO; ATYPICAL LYMPHOCYTE FLAG 120 (0-99)
[2017-02-17 04:43] LABS: ANION GAP 3 mEq/L (8-16); CALCIUM 7.2 mg/dL (8.5-10.4); CARBON DIOXIDE 30 mEq/l (22-31); CHLORIDE 96 mEq/L (97-110); CREATININE 0.7 mg/dL (0.7-1.3); GLOMERULAR FILTRATION RATE > 60; GLUCOSE 114 mg/dL (70-100); POTASSIUM 3.7 mEq/L (3.5-5.2); SODIUM 129 mEq/L (134-144)
[2017-02-17 05:07] LABS: PLATELET ESTIMATE ADEQUATE (ADEQ)
[2017-02-17] MEDS: ceFAZolin 2 GM/DEXTROSE 100 ML IV SCH ×3 (06:11→20:37)
[2017-02-17] MEDS: DILTIAZEM CD 120 MG CAP PO SCH (08:19)
[2017-02-17] MEDS: APIXABAN 5 MG TAB PO SCH ×2 (08:23→21:25)
[2017-02-17] MEDS: POTASSIUM CL 20 MEQ/15 ML UDCUP PO SCH (08:23)
[2017-02-17] MEDS: traMADol 50 MG TAB PO PRN ×2 (08:25→14:36)
[2017-02-17] MEDS ORDERED: FUROSEMIDE 40 MG TAB PO SCH (09:00)
[2017-02-17] MEDS ORDERED: SPIRONOLACTONE 50 MG TAB PO SCH (09:00)
[2017-02-17] MEDS ORDERED: POTASSIUM CL 10 MEQ TAB PO ONE ×2 (11:49→19:53)
--- NOTE | 2017-02-17 12:12 | SOAPPROG ---
SOAP Progress Note Assessment/Plan: Assessment: septic right shoulder s/p i and d Plan:drain discontinued am rom as vinh continue iv abx no other joint involvement currently 02/16/17 09:23 02/17/17 12:11 Subjective: improving still crunching mild pain Objective: Vital Signs Temp Pulse Resp BP Pulse Ox 36.6 C 84 15 131/71 H 99 02/17/17 08:00 02/17/17 08:19 02/17/17 08:00 02/17/17 08:19 02/17/17 08:00 Microbiology 02/15/17 Unknown Gram Stain - Final Shoulder - Aspirate Laboratory Results 02/17/17 03:55 02/17/17 03:55 02/16/17 02/17/17 02/18/17 05:59 05:59 05:59 Intake Total 1961 1120 Output Total 425 1560 Balance 1536 -440 PT 18.7 SEC (12.0-15.0) H 02/14/17 13:05 INR 1.56 (0.83-1.16) H 02/14/17 13:05 dressing removed slightly purulent drainage 10 cc over last shift improved active rom to right shoulder ICD10 Worksheet Patient Problems: Problems Problem Status Onset Congestive heart failure Acute Edema of right lower leg due to venous stasis Acute New onset atrial fibrillation Acute
--- NOTE | 2017-02-17 14:46 | ASMTCMCOM ---
CM Note CM Note Notes: Sent referral to [facility]ettie to bo on 4 weeks of IV ABX for pt. If pt,chooses to go home with IV ABX, he will need a HC RN set up as well. C/M to follow. Date Signed: 02/17/2017 02:46 PM Electronically Signed By:Ana Campbell LCSW
--- NOTE | 2017-02-17 14:46 | SOAPPROG ---
JORGE Progress Note Assessment/Plan: Assessment: Plan: 02/15/17 11:20 02/16/17 11:13 Atrial fibrillation Obesity Hypertension Septic shoulder Also talked to his and answered her questions. 02/17/17 14:39 He is not having any new chest pain His shoulders improved He has no jaw pain arm pain He is not having any findings of acute coronary syndrome He has no heart failure He is in normal sinus rhythm He has had no new lower neurologic issues. He is remaining on his full anticoagulation for his atrial fibrillation for total of 4 weeks after he converted. He will in 6 weeks get a nuclear stress test with a Lexiscan protocol He will then see me in the office after that study is done. I will tell the office to set this up. I think is done very well with his shoulder surgery and feels much better. His blood pressure is currently stable he knows where aiming for goal of 135/85 as a maximum number. He has major problems with obesity and I am hoping he will work on this. We have answered all his questions. Subjective: He is feeling well today. He is not having any chest pain or shortness of breath. Feels quite active. He feels much brighter than he has. The shoulder is sore. He has no fever chills No new neurologic complaints No palpitations No orthopnea PND or dyspnea on exertion No chest pain chest tightness jaw pain arm pain. Objective: Vital Signs Temp Pulse Resp BP Pulse Ox 36.7 C 81 18 120/66 98 02/17/17 12:00 02/17/17 12:00 02/17/17 12:00 02/17/17 12:00 02/17/17 12:00 Microbiology 02/15/17 Unknown Gram Stain - Final Shoulder - Aspirate Laboratory Results 02/17/17 03:55 02/17/17 03:55 02/16/17 02/17/17 02/18/17 05:59 05:59 05:59 Intake Total 1961 1120 100 Output Total 425 1560 5 Balance 1536 -440 95 PT 18.7 SEC (12.0-15.0) H 02/14/17 13:05 INR 1.56 (0.83-1.16) H 02/14/17 13:05 Physical Exam - Physical Exam General Appearance: alert Respiratory: rhonchi Cardiac/Chest: systolic murmur Abdomen: non-tender, soft Skin: warm/dry, No pallor Neuro/Psych: alert (All) ICD10 Worksheet Patient Problems: Problems Problem Status Onset Congestive heart failure Acute Edema of right lower leg due to venous stasis Acute New onset atrial fibrillation Acute
--- NOTE | 2017-02-17 15:55 | HOSPPROG ---
Hospitalist Progress Note Assessment/Plan: # MSSA severe sepsis due to septic right shoulder- 2/2 admission cultures + s/p washout in OR with Dr. Aguayo- pain remains post washout- minimal LEONOR drainage - surveillance cultures today - continue IV ancef # SHENG - creatinine bumped to 1.2 after admission- down to 0.7 again with fluids - continue to monitor on Ancef # Acute afib with RVR - converted to sinus after admission- TELE (personally reviewed and interpreted) sinus in the 80s- oxygen saturations 98% on 3 L -start PO diltiazem -30 days anti-coagulation - start Eliquis- cleared with ortho # Cirrhosis/ Hep C/ possible fatty liver disease- at presentation volume overloaded - cont lasix/spironolactone - advise Etoh cessation # Morbid obesity BMI 40 # Metabolic encephalopathy due to infection - resolved # prophylaxis Lovenox # diet regular # disposition greater than 2 midnights as patient needs surveillance cultures clear for appropriate time. Prior to PICC placement I have discussed the case with Infectious Disease surveillance cultures will be drawn today Subjective: Pain persistent right shoulder Objective: Vital Signs Temp Pulse Resp BP Pulse Ox 36.7 C 81 18 120/66 98 02/17/17 12:00 02/17/17 12:00 02/17/17 12:00 02/17/17 12:00 02/17/17 12:00 Microbiology 02/15/17 Unknown Gram Stain - Final Shoulder - Aspirate Laboratory Results 02/17/17 03:55 02/17/17 03:55 02/16/17 02/17/17 02/18/17 05:59 05:59 05:59 Intake Total 1961 1120 100 Output Total 425 1560 5 Balance 1536 -440 95 PT 18.7 SEC (12.0-15.0) H 02/14/17 13:05 INR 1.56 (0.83-1.16) H 02/14/17 13:05 - Physical Exam Constitutional: appears nourished Eyes: anicteric sclera Ears, Nose, Mouth, Throat: moist mucous membranes Cardiovascular: regular rate and rhythym Respiratory: no respiratory distress, no rales or rhonchi Gastrointestinal: normoactive bowel sounds Genitourinary: no bladder fullness Skin: warm Musculoskeletal: No asymmetric calves Neurologic: AAOx3 Psychiatric: interacting appropriately, not anxious Lymph, Heme, Immunologic: no cervical LAD ICD10 Worksheet Patient Problems: Problems Problem Status Onset Congestive heart failure Acute Edema of right lower leg due to venous stasis Acute New onset atrial fibrillation Acute
--- NOTE | 2017-02-17 18:01 | PCMIDPN ---
Assessment/Plan: Assessment: MSSA bacteremia likely secondary to right lower extremity cellulitis initially. Patient also with a secondary right shoulder septic arthritis status post washout yesterday. Appears to be clinically improving. Currently on cefazolin monotherapy and tolerating treatment well. Repeat blood cultures obtained today. Mildly thickened mitral valve leaflets but no clear vegetation on echocardiogram. Will follow for blood culture clearance. If this clears readily will treat probably 4 weeks for metastatic MSSA disease including septic arthritis. Plan: 1. Continue cefazolin at current dose. 2. Repeat blood culture surveillance for cultures drawn today. 3. Tract fever curve, white blood cell count and clinical course. Subjective: Patient is resting in his hospital bed. is in the room. He has no new complaint. Still in discomfort in regards to his right shoulder postoperatively. Otherwise feeling somewhat better than admission. No new fevers or chills. Objective: Cefazolin # 2 Vital Signs Temp Pulse Resp BP Pulse Ox 36.6 C 85 16 122/66 H 98 02/17/17 16:00 02/17/17 16:00 02/17/17 16:00 02/17/17 16:00 02/17/17 16:00 Microbiology 02/15/17 Unknown Gram Stain - Final Shoulder - Aspirate Laboratory Results 02/17/17 03:55 02/17/17 03:55 02/16/17 02/17/17 02/18/17 05:59 05:59 05:59 Intake Total 1961 1120 100 Output Total 425 1560 5 Balance 1536 -440 95 C-Reactive Protein 58.1 mg/L (<10.0) H 02/16/17 03:50 - Physical Exam General Appearance: WD/WN, alert, no apparent distress, non-toxic Respiratory: lungs clear, normal breath sounds, No respiratory distress Cardiac/Chest: regular rate, rhythm, No tachycardia Extremities: No non-tender, No normal inspection Skin: normal color, warm/dry, No rash Neuro/Psych: alert, normal mood/affect, oriented x 3 ICD10 Worksheet Patient Problems: Problems Problem Status Onset Congestive heart failure Acute Edema of right lower leg due to venous stasis Acute New onset atrial fibrillation Acute
[2017-02-17 19:14] LABS: POTASSIUM 3.9 mEq/L (3.5-5.2)
[2017-02-17] MEDS ORDERED: OCTREOTIDE ACETATE 50 MCG/ML INJ IVP ONE (22:24)
[2017-02-17] MEDS ORDERED: PANTOPRAZOLE SODIUM 80 MG in NS 100 ML IV ONE (22:24)
[2017-02-17 22:45] LABS: HEMATOCRIT 31.9 % (40.0-51.0)
--- NOTE | 2017-02-17 23:03 | HOSPPROG ---
Hospitalist Progress Note Assessment/Plan: S: Called emergently to bedside for melena. Chart reviewed, admitted for staph bacteremia, a-fib on eliquis. Hx cirrhosis, he relates multiple bandings in the distant past. John reviewed - EGD recently with ulcers at [facility] (unable to find actual EGD report, no mention of varices in dc summary). O: 132/71 90 NAD regular, no MRG abd NT, ND LE edema A/P: # acute UGIB - discussed with Dr Ashby; likely ulcerative bleed - normal plts argue against portal htn - transfer to ICU, NPO, EGD in am unless becomes unstable overnight then emergent EGD - protonix gtt, octreotide gtt - trend H/H - hold diuretics, eliquis 40 minutes floor/bedside CC time Objective: Vital Signs Temp Pulse Resp BP Pulse Ox 36.7 C 90 19 132/71 H 95 02/17/17 20:00 02/17/17 20:00 02/17/17 20:00 02/17/17 20:00 02/17/17 20:00 Microbiology 02/15/17 Unknown Gram Stain - Final Shoulder - Aspirate Laboratory Results 02/17/17 22:30 02/17/17 18:42 02/16/17 02/17/17 02/18/17 05:59 05:59 05:59 Intake Total 1961 1120 650 Output Total 425 1560 5 Balance 1536 -440 645 PT 18.7 SEC (12.0-15.0) H 02/14/17 13:05 INR 1.56 (0.83-1.16) H 02/14/17 13:05 ICD10 Worksheet Patient Problems: Problems Problem Status Onset New onset atrial fibrillation Acute Congestive heart failure Acute Edema of right lower leg due to venous stasis Acute
[2017-02-17] MEDS: PANTOPRAZOLE SODIUM 80 MG in NS 100 ML IV SCH (23:32)
[2017-02-17] MEDS: OCTREOTIDE ACETATE 500 MCG in D5W 50 ML IV SCH (23:33)
[2017-02-18 00:15] LABS: HEMATOCRIT 32.3 % (40.0-51.0); HEMOGLOBIN 11.3 g/dL (13.7-17.5)
[2017-02-18 04:32] LABS: ADD DIFF? YES; ADD MORPH? NO; ADD SCAN? NO; ATYPICAL LYMPHOCYTE FLAG 50 (0-99); FRAGMENT RBC FLAG 0 (0-99); HEMATOCRIT 34.2 % (40.0-51.0); HEMOGLOBIN 11.4 g/dL (13.7-17.5); LEFT SHIFT FLG 30 (0-99); LIPEMIA HEMOLYSIS FLAG 80 (0-99); MEAN CELL HEMOGLOBIN 33.5 pg (27.9-34.1); MEAN CELL HEMOGLOBIN CONCENTR. 33.3 g/dL (32.4-36.7); MEAN CELL VOLUME 100.6 fL (81.5-99.8); MEAN PLATELET VOLUME 9.5 fL (8.7-11.7); PLATELET CLUMPS FLAG 10 (0-99); PLATELET COUNT 166 10^3/uL (150-400); RED CELL DISTRIBUTION WIDTH 14.6 % (11.5-15.2)
[2017-02-18 04:40] LABS: ANION GAP 7 mEq/L (8-16); CALCIUM 7.2 mg/dL (8.5-10.4); CARBON DIOXIDE 29 mEq/l (22-31); CHLORIDE 101 mEq/L (97-110); CREATININE 0.6 mg/dL (0.7-1.3); GLOMERULAR FILTRATION RATE > 60; GLUCOSE 102 mg/dL (70-100); POTASSIUM 4.3 mEq/L (3.5-5.2); SODIUM 137 mEq/L (134-144)
[2017-02-18 05:32] LABS: PLATELET ESTIMATE ADEQUATE (ADEQ)
[2017-02-18] MEDS: ceFAZolin 2 GM/DEXTROSE 100 ML IV SCH ×3 (05:48→23:05)
--- NOTE | 2017-02-18 06:28 | SOAPPROG ---
SOAP Progress Note Assessment/Plan: Assessment: septic right shoulder s/p i and d moved to icu after upper gi bleed last pm Plan currently stable right shoulder improving wbc decreasing and remains afebrile no other joint involvement rom as vinh continue iv abx 02/16/17 09:23 02/17/17 12:11 02/18/17 06:25 Subjective: sore at right shoulder improved movement no other limb pain Objective: Vital Signs Temp Pulse Resp BP Pulse Ox 36.6 C 89 18 138/56 H 100 02/18/17 04:00 02/18/17 04:00 02/18/17 04:00 02/18/17 04:00 02/18/17 04:00 Microbiology 02/15/17 Unknown Gram Stain - Final Shoulder - Aspirate Laboratory Results 02/18/17 04:11 02/18/17 04:11 02/17/17 02/18/17 02/19/17 05:59 05:59 05:59 Intake Total 1120 809.5 Output Total 1560 955 Balance -440 -145.5 PT 18.7 SEC (12.0-15.0) H 02/14/17 13:05 INR 1.56 (0.83-1.16) H 02/14/17 13:05 dressings changed no purulent drainage active rom with crepitance active rom left upper ext and bilateral lower ext without increased pain bilateral lower ext swollen no focal calf pain ICD10 Worksheet Patient Problems: Problems Problem Status Onset Congestive heart failure Acute Edema of right lower leg due to venous stasis Acute New onset atrial fibrillation Acute
[2017-02-18] MEDS: OCTREOTIDE ACETATE 500 MCG in D5W 50 ML IV SCH (09:35)
[2017-02-18 09:42] LABS: HEMATOCRIT 34.7 % (40.0-51.0); HEMOGLOBIN 11.8 g/dL (13.7-17.5)
[2017-02-18] MEDS: PANTOPRAZOLE SODIUM 80 MG in NS 100 ML IV SCH ×2 (10:07→18:41)
--- NOTE | 2017-02-18 11:28 | PDANEPAE ---
ANE Past Medical History - Cardiovascular History Hx Chest Pain: No Hx Coronary Artery / Peripheral Vascular Disease: No Hx Palpitations: Yes - Pulmonary History Hx Oxygen in Use at Home: No Hx Sleep Apnea: No Sleep Apnea Screening Result - Last Documented: Positive - Endocrine History Hx Diabetes: No Hypothyroid: No Hyperthyroid: No - Liver History Hx Hepatic Disorders: Yes - Surgical History Prior Surgeries: Lap radha Difficult airway ANE Review of Systems Review of Systems: - Exercise capacity METS (RN): 4 METS ANE Patient History - Allergies Allergies/Adverse Reactions: No Known Allergies Allergy (Verified 02/14/17 12:51) - Home Medications Home medications: home medication list seen and reviewed Home Medications: NK [No Known Home Meds] 02/14/17 [Last Taken Unknown] - NPO status NPO Status: no food or drink >8 hours NPO Since - Liquids (Date): 02/14/17 NPO Since - Liquids (Time): 00:00 NPO Since - Solids (Date): 02/14/17 - Anes Hx Anes Hx: no prior problems - Smoking Hx Smoking Status: Former smoker - Alcohol Use Alcohol Use: Rarely - Family Anes Hx Family Anes Hx: none ANE Labs/Vital Signs - Labs Result Diagrams: 02/18/17 09:30 02/18/17 04:11 - Vital Signs Blood Pressure: 115/57 Heart Rate: 89 Respiratory Rate: 16 O2 Sat (%): 99 Height: 180.34 cm Weight: 127 kg ANE Physical Exam - Airway Neck exam: FROM Mallampati Score: Class 2 Mouth exam: normal dental/mouth exam - Pulmonary Pulmonary: no respiratory distress, clear to auscultation - Cardiovascular Cardiovascular: regular rate and rhythym, no murmur, rub, or gallop - ASA Status ASA Status: II ANE Anesthesia Plan Anesthesia Plan: general endotracheal anesthesia (backup), GA with mask Total IV Anesthesia: Yes
[2017-02-18] MEDS ORDERED: PROPOFOL/EMULSION 500 MG/50 ML BOTTLE IV ONE (11:33)
[2017-02-18] MEDS ORDERED: PROPOFOL 200 MG/20 ML VIAL ONE (11:55)
[2017-02-18] MEDS ORDERED: ONDANSETRON 4 MG/2 ML VIAL IVP PRN (11:58)
[2017-02-18] MEDS ORDERED: NALOXONE HCL 0.4 MG/ML INJ IVP PRN (11:58)
--- NOTE | 2017-02-18 12:04 | POSTOPPROG ---
Post Op Note Date of Operation: 02/18/17 Surgeon: Darshan Ashby Anesthesiologist: Do WADSWORTH Anesthesia: Other (Specify) (IV general) Pre-op Diagnosis: UGI bleed, eval ulcers vs varices Post-op Diagnosis: Ulcers - large one in antrum wiht visible vessle s/p cautery , many ulcers Indication: UGI bleed Procedure: EGD and hemostasis Findings: many ulcers in antrum and few in duodenum, large antral ulcer with VV Inf/Abcess present in the surg proc area at time of surgery?: No EBL: Minimal (few ml from bx) Complications: none immediate
--- NOTE | 2017-02-18 12:13 | GIREPORT ---
[facility] - Endoscopy Department Patient Name: Robert Cerrato Procedure Date: 02/18/2017 11:40 AM Patient Type: Inpatient Attending / ER Physician: Gautam Bueno Procedure: Upper GI endoscopy Indications: Acute post hemorrhagic anemia, Melena Providers: Aristeo Ashby MD Medicines: IV general Complications: No immediate complications. Estimated blood loss: Minimal. Findings: Mucosal changes including white plaques were found in the entire esopha david. Biopsies were obtained from the proximal and distal esophagus with cold forceps for histology of suspected eosinophilic esophagitis. Estimated blood loss was minimal. Many non-bleeding cratered gastric ulcers with a visible vessel were fo und in the gastric antrum. The largest lesion was 13 mm in largest dimensio n. For hemostasis, one hemostatic clip was not successfully placed. Coagul ation for bleeding prevention using bipolar probe was successful. Estimated b lood loss: none. Biopsies were taken with a cold forceps for histology. Viri mated blood loss was minimal. Few non-bleeding superficial duodenal ulcers with pigmented material we re found in the first portion of the duodenum. The largest lesion was 10 m m in largest dimension. The exam was otherwise without abnormality. Estimated Blood Loss: Estimated blood loss was minimal. Post Op Diagnosis: - Esophageal mucosal changes suspicious for eosinophilic esophagitis. Biopsied. - Non-bleeding gastric ulcers with a visible vessel. Clip was placed. Treated with bipolar cautery. Biopsied. - Multiple non-bleeding duodenal ulcers with pigmented material. - The examination was otherwise normal. Recommendation: - Await pathology results. - Use Protonix (pantoprazole) 40 mg PO BID for 4 weeks. - Repeat upper endoscopy in 3 months to check healing. - Return patient to ICU for ongoing care. - Thank you for allowing me to help in your patient's care. Do not hesi freeman to call with any questions. Attending Participation: I personally performed the entire procedure. Symone Alberts M.D Aristeo Ashby MD 02/18/2017 12:13:00 PM Number of Addenda: 0 Note Initiated On: 02/18/2017 11:40 AM Total Procedure Duration Time 0 hours 15 minutes 8 seconds [email or web address]
--- NOTE | 2017-02-18 12:28 | PCMIDPN ---
Assessment/Plan: Assessment/Plan: 1. MSSA bacteremia/sepsis: - wbc improved. -Currently on Ancef therapy - f/u blood cx from 02/17 pending -TTE: with thickened MV - If blood cx still positive , may need JANA to further evaluate in order determine accurate duratoin of therapy 2/ Right septic shoulder- s/p wash out (02/15/17) - CX with MSSa as well - Will need at least 4 weeks of therapy for this. Meds ancef 2g q8- Subjective: afebrile. feeling better. some shoulder pain. denies sob, abd pain. Objective: Vital Signs Temp Pulse Resp BP Pulse Ox 36.7 C 89 16 115/57 L 99 02/18/17 07:48 02/18/17 11:29 02/18/17 11:29 02/18/17 11:29 02/18/17 11:29 Microbiology 02/15/17 Unknown Gram Stain - Final Shoulder - Aspirate Laboratory Results 02/18/17 09:30 02/18/17 04:11 02/17/17 02/18/17 02/19/17 05:59 05:59 05:59 Intake Total 1120 809.5 Output Total 1560 955 300 Balance -440 -145.5 -300 C-Reactive Protein 58.1 mg/L (<10.0) H 02/16/17 03:50 - Physical Exam General Appearance: alert, no apparent distress Respiratory: lungs clear Cardiac/Chest: regular rate, rhythm Extremities: swelling Abdomen: normal bowel sounds, non-tender, soft, No distended Skin: No erythema ICD10 Worksheet Patient Problems: Problems Problem Status Onset Congestive heart failure Acute Edema of right lower leg due to venous stasis Acute New onset atrial fibrillation Acute
--- NOTE | 2017-02-18 13:10 | POSTANESTH ---
Post Anesthetic Evaluation Cardiovascular Status: Normal, Stable, Similar to Pre-Op Cond Respiratory Status: Normal, Stable, Similar to Pre-op Cond. Level of Consciousness/Mental Status: Can Participate in Eval, Alert and Oriented Pain Control: Adequate, Prn Tx Ordered Nausea/Vomiting Control: Adequate, Prn Tx Ordered Complications Possibly Related to Anesthesia: None Noted
--- NOTE | 2017-02-18 13:16 | HOSPPROG ---
Hospitalist Progress Note Assessment/Plan: # Acute GIB - pt with melena overnight - history of cirrhosis and varices patient transferred to the ICU for close monitoring H&H remained on overnight with normal vital signs - cont octreotide drip - continue PPI - NPO for EGD - if negative can return to PCU # MSSA severe sepsis due to septic right shoulder- 2/2 admission cultures + with MSSA s/p washout in OR with Dr. Aguayo- pain remains post washout- minimal LEONOR drainage - surveillance cultures drawn yesterday remain NGTD - continue IV ancef - PICC per ID when surveillance negative for appropriate time # SHENG - creatinine bumped to 1.2 after admission- down to 0.6 this am - continue to monitor on Ancef # Acute afib with RVR - converted to sinus after admission- TELE (personally reviewed and interpreted) remained sinus in the 80s overnight oxygen saturations 100% on 3 L -cont PO diltiazem -30 days anti-coagulation - start Eliquis- cleared with ortho # Cirrhosis/ Hep C/ possible fatty liver disease- at presentation volume overloaded - cont lasix/spironolactone - advise Etoh cessation # Morbid obesity BMI 40 # Metabolic encephalopathy due to infection - resolved # prophylaxis - restart Lovenox when cleared after EGD # diet - NPO for EGD # disposition greater than 2 midnights as patient needs surveillance cultures clear for appropriate time. Prior to PICC placement I have discussed the case with RN - patient stable overnight - can likely transfer to floor after EGD Subjective: pain improved Objective: Vital Signs Temp Pulse Resp BP Pulse Ox 37.1 C 94 18 160/79 H 92 02/18/17 13:07 02/18/17 13:07 02/18/17 13:07 02/18/17 13:07 02/18/17 13:07 Microbiology 02/15/17 Unknown Gram Stain - Final Shoulder - Aspirate Laboratory Results 02/18/17 09:30 02/18/17 04:11 02/17/17 02/18/17 02/19/17 05:59 05:59 05:59 Intake Total 1120 809.5 0 Output Total 1560 955 300 Balance -440 -145.5 -300 PT 18.7 SEC (12.0-15.0) H 02/14/17 13:05 INR 1.56 (0.83-1.16) H 02/14/17 13:05 - Physical Exam Constitutional: chronically ill appearing Eyes: anicteric sclera Ears, Nose, Mouth, Throat: dry mucous membranes Cardiovascular: regular rate and rhythym Respiratory: no respiratory distress Gastrointestinal: normoactive bowel sounds Genitourinary: no bladder fullness Skin: warm Musculoskeletal: No asymmetric calves Neurologic: AAOx3 Psychiatric: interacting appropriately Lymph, Heme, Immunologic: no cervical LAD ICD10 Worksheet Patient Problems: Problems Problem Status Onset Congestive heart failure Acute Edema of right lower leg due to venous stasis Acute New onset atrial fibrillation Acute
[2017-02-18] MEDS: POTASSIUM CL 20 MEQ/15 ML UDCUP PO SCH (13:21)
[2017-02-18] MEDS: DILTIAZEM CD 120 MG CAP PO SCH (13:21)
[2017-02-18] MEDS: PANTOPRAZOLE SODIUM 40 MG TAB PO SCH (20:38)
--- NOTE | 2017-02-18 22:13 | GCON ---
[f rep st] CONSULTATION REFERRING PHYSICIAN: Alex Arellano MD INDICATION FOR CONSULTATION: Posthemorrhagic anemia and melena. HISTORY OF PRESENT ILLNESS: The patient is a 61-year-old male with past medical history of hepatitis C. He says he underwent eradication therapy with interferon done at the [facility] with Dr. Acharya. He does have evidence of cirrhosis, however. He has not seen a physician in many years. He was admitted to [facility] according to the hospitalist with a GI bleed last year and did have ulcers as the cause. He admits that he never went back for followup even though he was recommended to have a followup EGD. He does take aspirin as well as NSAIDs for pain. He was admitted for shoulder pain and he was noted to have melena and decreased hemoglobin and hematocrit last night. He was transferred to the unit. He is hemodynamically stable. He was made n.p.o. and was placed on PPI as well as octreotide after they discussed this with me yesterday evening. I am now here to help evaluate and treat an upper GI bleed, which I think is more likely related to ulcer disease given his NSAID use, than varices given his elevated platelet count. He is not a good historian. It is not clear that he had esophageal varices back in 2013, but it certainly sounds like it. I do not know if there was some increase in portal hypertension that accounted for those. PAST MEDICAL HISTORY: Hepatitis C reportedly treated with interferon, history of GI bleed secondary to peptic ulcers. PAST SURGICAL HISTORY: Cholecystectomy, right knee scope, tonsillectomy. He did undergo irrigation and debridement of right septic shoulder on the 16th of this month. FAMILY HISTORY: He does not know of any colon cancer in his family. Does not know of any heart disease in his family. 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 He said he used to drink heavily, but he has only occasional alcohol use now. He quit smoking years ago. MEDICATIONS: In-hospital include: Tylenol p.r.n., Eliquis 5 mg p.o. b.i.d. which has been held, cephazolin, Ancef 2 g IV q.8, diltiazem 120 mg p.o. daily, Lasix 40 mg p.o. daily, Dilaudid 0.2-0.4 mg IV q.4, octreotide drip, Protonix drip, Zofran p.r.n., Aldactone 50 mg a day, Ultram 50 mg p.o. q.6. ALLERGIES: No known drug allergies. REVIEW OF SYSTEMS: A complete Review of Systems performed is negative other than noted in the HPI. PHYSICAL EXAM: GENERAL: Chronically ill-appearing male sitting in his bed in no acute distress. VITAL SIGNS: Blood pressure 115/57, pulse is 89, respirations 16, he is 99% on 3 L nasal cannula. HEENT: Eyes: Icteric. EOMI. Mouth: No lesions. NECK: Supple. I do not appreciate any JVD or thyroid mass. BACK: No spine tenderness. LUNGS: Clear. CARDIAC: S1, S2. Regular rhythm. I do not appreciate murmurs, rubs or gallops. ABDOMEN: Bowel sounds are normal in pitch and frequency. Soft with mild epigastric right upper quadrant tenderness. EXTREMITIES: 2+ to 3+ edema. NEUROLOGIC: Alert and oriented x3. Cranial nerves intact. Nonfocal, except he does have some asterixis. LABORATORY DATA: From this morning, the : Sodium 137, potassium 4.3, chloride 101, bicarb 29, BUN 18, creatinine 0.6, glucose 102, calcium 7.2. Of note, his BUN was 27 yesterday and 28 on the . From today, WBC 7.35, hemoglobin 11.8, hematocrit 34.2, MCV 100.6, platelet count 166. His hemoglobin was 14.4 on the ; 11.3 on early , 12.1 at 4 a.m. on the ; 11.0 late on the . From February 14: Pro time 18.7, INR 1.56, PTT 36.5, HCV PCR is pending. Abdominal ultrasound performed on the reveals liver measuring 12 cm. Splenomegaly increased at 15 cm. Splenic artery and splenic vein are patent at the hilum. There is to-and-fro flow within the portal venous system and splenomegaly consistent with portal hypertension. Head CT performed on February 15, 2017: Mild atrophy. No acute hemorrhage, hydrocephalus, or mass effect. ASSESSMENT: Post hemorrhagic anemia and melena in a patient consistent with upper gastrointestinal bleed. 1. Post hemorrhagic anemia. 2. Melena. 3. Liver disease. 4. History of hepatitis C. 5. Episode of atrial fibrillation which has converted to sinus rhythm during this admission. 6. Obesity. 7. Mild hepatic encephalopathy. RECOMMENDATIONS: 1. Urgent EGD for evaluation of upper gastrointestinal bleed. I expect that I will see ulcers given his history of ulcers, nonsteroidal anti-inflammatory drug use, and aspirin use. I do not think he is actively bleeding as his hemoglobin is stable and his BUN is decreasing. 2. After EGD, I will likely stop the octreotide if I see ulcer disease. 3. If ulcer disease is noted and octreotide is stopped, depending on the EGD findings, we can change the intravenous Protonix to oral twice daily once the bag is finished. 4. If encephalopathy worsens, recommend Xifaxan 550 mg p.o. 3 times daily. I will have to see if his encephalopathy and asterixis are still present in a day or 2. I suspect it is related to his upper gastrointestinal bleed and digestion of his blood. 5. Follow up hepatitis C virus load. 6. See if we can get his evaluation from the [facility]. He did see Dr. Acharya for his interferon therapy years ago. I am sure they did a full workup to make sure that he did not have other causes for his liver disease. 7. Alcohol intake. We recommend abstinence given his cirrhosis. 8. As an outpatient, this person should be seeing an internal medicine physician. We should make arrangements for him to have a followup as an outpatient. He will follow up with our group for his liver disease. 9. Further recommendations to follow results of above and clinical course. Given the patient's multiple medical problems, this will be a high-risk procedure. I will ask Anesthesia to perform the sedation. Thank you for allowing me to participate in the patient's healthcare. Do not hesitate to call me with any questions. /[id number]/MODL MTDD
[2017-02-18] MEDS: oxyCODONE IR 5 MG TAB PO PRN (23:12)
[2017-02-19 04:26] VITALS: RESP 16
[2017-02-19] MEDS: ceFAZolin 2 GM/DEXTROSE 100 ML IV SCH ×2 (05:00→14:23)
[2017-02-19 05:34] LABS: HEMATOCRIT 31.4 % (40.0-51.0); HEMOGLOBIN 10.6 g/dL (13.7-17.5); MEAN CELL HEMOGLOBIN 34.3 pg (27.9-34.1); MEAN CELL HEMOGLOBIN CONCENTR. 33.8 g/dL (32.4-36.7); MEAN CELL VOLUME 101.6 fL (81.5-99.8); RED BLOOD CELL COUNT 3.09 10^6/uL (4.40-6.38); RED CELL DISTRIBUTION WIDTH 14.8 % (11.5-15.2)
[2017-02-19 05:37] LABS: POTASSIUM 3.6 mEq/L (3.5-5.2)
--- NOTE | 2017-02-19 06:36 | SOAPPROG ---
SOAP Progress Note Assessment/Plan: Assessment: septic right shoulder s/p i and d Plan currently stable right shoulder improving wbc decreasing and remains afebrile no other joint involvement rom as vinh continue iv abx f/u at two weeks [facility] ortho seek attn for increasing joint pain or other focal complaint 02/16/17 09:23 02/17/17 12:11 02/18/17 06:25 02/19/17 06:34 Subjective: much improved able to exercise shoulder Objective: Vital Signs Temp Pulse Resp BP Pulse Ox 36.7 C 85 16 116/65 92 02/19/17 04:00 02/19/17 04:00 02/19/17 04:00 02/19/17 04:00 02/19/17 04:00 Microbiology 02/15/17 Unknown Gram Stain - Final Shoulder - Aspirate Laboratory Results 02/19/17 04:57 02/19/17 04:57 02/18/17 02/19/17 02/20/17 05:59 05:59 05:59 Intake Total 809.5 996 Output Total 955 600 Balance -145.5 396 PT 18.7 SEC (12.0-15.0) H 02/14/17 13:05 INR 1.56 (0.83-1.16) H 02/14/17 13:05 dressings intact no purulent drainage active rom with mild pain calves swollen, nonfocally tender to palpation ICD10 Worksheet Patient Problems: Problems Problem Status Onset Congestive heart failure Acute Edema of right lower leg due to venous stasis Acute New onset atrial fibrillation Acute
[2017-02-19] MEDS ORDERED: POTASSIUM CL 10 MEQ TAB PO ONE (07:53)
[2017-02-19] MEDS ORDERED: ALTEPLASE 2 MG VIAL IVP PRN (08:33)
[2017-02-19] MEDS: DILTIAZEM CD 120 MG CAP PO SCH (09:06)
[2017-02-19] MEDS: PANTOPRAZOLE SODIUM 40 MG TAB PO SCH (09:07)
[2017-02-19] MEDS: POTASSIUM CL 20 MEQ/15 ML UDCUP PO SCH (09:07)
[2017-02-19] MEDS: traMADol 50 MG TAB PO PRN (09:14)
--- NOTE | 2017-02-19 09:23 | PCMIDPN ---
Assessment/Plan: # MSSA bacteremia: source RLE cellulitis, complicated by R shoulder septic arthritis s/p washout. RLE cellulitis much improved - almost resolved. blood cultures from 02/17/2017 remain negative suggesting clearance of bacteremia. --continue high dose cefazolin, stop date 03/17/17 --place PICC # Cirrhosis: multifactorial HCV (s/p RBV & interferon 10+ years ago) + h/o heavy EtOH: contributing risk factor to bacteremia --HCV VL pending --GI involved # GI bleed secondary to PUD meds cefazolin 2gm IV q8h micro 02/14 blood cx (2): MSSA 02/15 R shoulder MSSA 02/17 blood cx (2) : NGTD Subjective: Doing better today, more cheerful. Denies diarrhea Objective: Vital Signs Temp Pulse Resp BP Pulse Ox 36.9 C 83 16 130/72 H 94 02/19/17 08:45 02/19/17 09:06 02/19/17 08:45 02/19/17 09:06 02/19/17 08:45 Microbiology 02/15/17 Unknown Gram Stain - Final Shoulder - Aspirate Laboratory Results 02/19/17 04:57 02/19/17 04:57 02/18/17 02/19/17 02/20/17 05:59 05:59 05:59 Intake Total 809.5 996 Output Total 955 600 Balance -145.5 396 C-Reactive Protein 58.1 mg/L (<10.0) H 02/16/17 03:50 - Physical Exam General Appearance: alert, no apparent distress EENT: other ( extensive prior dental work), No thrush Respiratory: lungs clear, No accessory muscle use Cardiac/Chest: regular rate, rhythm, No systolic murmur Extremities: pedal edema, other ( cellulitis right lower extremity resolved; hyperpigmentation in a stocking distribution right lower extremity consistent with venous stasis dermatitis) Abdomen: normal bowel sounds, non-tender, soft Male Genitalia: No lira Skin: other ( multiple tattoos), No rash Neuro/Psych: alert, normal mood/affect, oriented x 3 - Time Spent With Patient Time Spent with Patient: greater than 25 minutes (Son at bedside. Reviewed 4 weeks IV antibiotics and need for PICC line.) Time Spent with Patient: Greater than 25 minutes spent on this patients care, greater than 50% of time spent counseling, educating, and coordinating care regarding the above mentioned plan. ICD10 Worksheet Patient Problems: Problems Problem Status Onset Congestive heart failure Acute Edema of right lower leg due to venous stasis Acute New onset atrial fibrillation Acute
--- NOTE | 2017-02-19 11:11 | POSTANESTH ---
Post Anesthetic Evaluation Cardiovascular Status: Normal, Stable Respiratory Status: Normal, Stable Level of Consciousness/Mental Status: Can Participate in Eval Pain Control: Adequate, Prn Tx Ordered Nausea/Vomiting Control: Adequate, Prn Tx Ordered Complications Possibly Related to Anesthesia: None Noted
--- NOTE | 2017-02-19 11:25 | PDIAF ---
- Diagnosis Diagnosis: MSSA bacteremia and right shoulder septic arthritis Code Status: Full Code - Medication Management Discharge Medications: Medications to Continue on Transfer NK [No Known Home Meds] 02/14/17 [Last Taken Unknown] Fdc Antibiotics: cefazolin 6mg IV continuous infusion Animation Producer Antibiotic Stop Date: 03/17/17 Discharge Medications: Refer to the Discharge Home Medication list for PRN reason. PICC Care - Routine: Yes - Orders Services needed: Home Care, Registered Nurse, Physical Therapy, Occupational Therapy Home Care Face to Face: I certify that this patient was under my care and that I had the required [id number] encounter meeting the encounter requirements on the discharge day. My findings support the fact that the patient is homebound as defined in Home Care Face to Face Continued: CMS Chapter 7 Medicare Benefits Manual 30.1.1 , The condition of the patient is such that there exists a normal inability to leave home and consequently, leaving home would require a considerable and taxing effort. Activity/Weight Bearing Restrictions: right shoulder. rom. wbat. daily dressing changes. no soaking may shower without bandage - Labs/Radiology CBC Date: 02/24/17 ( weekly, Friday) CMP Date: 02/24/17 ( weekly, Friday) CRP Date: 02/24/17 (Weekly, Friday) Call or Fax Lab and Imaging Results to: Anais Zacarias MD [facility] at fax [phone] - Follow Up Care Current Providers and Referrals: NONE *PRIMARY CARE P,. [Primary Care Provider] - As per Instructions Topher Aguayo MD [Medical Doctor] - Anais Zacarias MD [Medical Doctor] - 02/27/17 1:00 pm
--- NOTE | 2017-02-19 11:34 | SOAPPROG ---
JORGE Progress Note Assessment/Plan: Assessment:Plan: 1) UGI bleed from (has DU's also) - PPI PO BID 4 weeks, daily 8 weeks total and may need skilled nursing gi prophylaxis 2) - PPI as above, EGD in 3 months to assess healing, f/u path from EGD 3) Liver - cirrhotic, will need outpt f/u for this 4) Encephalopathy - less asterixis today, expect it was worse from UGI bleed, If still with asterixis in few days then start Xifaxan 550mg PO BID 5) Hep C - s/p IFN treatment at [facility] - f/u viral load 6) Anemia - from UGI bleed, HB > 10, BUN decreasing c/w no more bleeding 02/19/17 11:34 Subjective: CC- UGI bleed from peptic ulcers, larege with visible vessel, multiple gastric and duodenal ulcers Pt feeling well no pain with PO intake no n/v no overt bleeding over last 24 hours Objective: Vital Signs Temp Pulse Resp BP Pulse Ox 36.9 C 83 16 130/72 H 94 02/19/17 08:45 02/19/17 09:06 02/19/17 08:45 02/19/17 09:06 02/19/17 08:45 Microbiology 02/15/17 Unknown Gram Stain - Final Shoulder - Aspirate Laboratory Results 02/19/17 04:57 02/19/17 04:57 02/18/17 02/19/17 02/20/17 05:59 05:59 05:59 Intake Total 809.5 996 Output Total 955 600 Balance -145.5 396 PT 18.7 SEC (12.0-15.0) H 02/14/17 13:05 INR 1.56 (0.83-1.16) H 02/14/17 13:05 A+Ox3 Mild asterixis CTA S1S2, RRR +Bs, soft monitor and storage bin tender over epi no r/g Laboratory Tests 02/17/17 02/18/17 02/18/17 03:55 04:11 04:11 Hgb 11.4 L Hct 34.2 L BUN 27 H 18 02/18/17 02/19/17 09:30 04:57 Hgb 11.8 L 10.6 L Hct 34.7 L 31.4 L BUN ICD10 Worksheet Patient Problems: Problems Problem Status Onset Congestive heart failure Acute Edema of right lower leg due to venous stasis Acute New onset atrial fibrillation Acute
--- NOTE | 2017-02-19 12:23 | ASMTCMCOM ---
CM Note CM Note Notes: Plan is for pt to DC today with continuous IV Ancef infusion through 03/17. [employer] will deliver ABX and supplies to pt's home. HC RN will meet pt at home for installation and teaching. Pt will also need PT/OT. Pt's is currently in surgery for DBS and will likely be admitted to [facility]. Pt's son, Robert Betancourt will be staying with pt. Final orders faxed. PICC line report will be faxed to [facility] when available. Date Signed: 02/19/2017 12:22 PM Electronically Signed By:Ana Campbell LCSW
--- NOTE | 2017-02-19 12:55 | PDIAF ---
- Diagnosis Diagnosis: MSSA bacteremia and right shoulder septic arthritis Code Status: Full Code - Medication Management Discharge Medications: Medications to Continue on Transfer Apixaban [Eliquis] 5 mg PO BID #60 tab 02/19/17 [Last Taken Unknown] Diltiazem Cd [Cardizem ER 120 MG (*)] 120 mg PO DAILY #30 cap 02/19/17 [Last Taken Unknown] Furosemide [Lasix 40 MG (*)] 40 mg PO DAILY #30 tab 02/19/17 [Last Taken Unknown ] Pantoprazole Sodium [Protonix 40mg (*)] 40 mg PO BID #60 tab 02/19/17 [Last Taken Unknown] Spironolactone [Aldactone] 50 mg PO DAILY #30 tab 02/19/17 [Last Taken Unknown] ceFAZolin 2 GM/DEXTROSE [Ancef 2 gm (Premix)] 6 gm IV DAILY bag 02/19/17 [Last Taken Unknown] [facility] Antibiotics: cefazolin 6gm IV continuous infusion Transportation Modeler Antibiotic Stop Date: 03/17/17 Discharge Medications: Refer to the Discharge Home Medication list for PRN reason. PICC Care - Routine: Yes - Orders Services needed: Home Care, Registered Nurse, Physical Therapy, Occupational Therapy Home Care Face to Face: I certify that this patient was under my care and that I had the required [id number] encounter meeting the encounter requirements on the discharge day. My findings support the fact that the patient is homebound as defined in Home Care Face to Face Continued: CMS Chapter 7 Medicare Benefits Manual 30.1.1 , The condition of the patient is such that there exists a normal inability to leave home and consequently, leaving home would require a considerable and taxing effort. Diet Recommendation: cardiac -low fat low salt Diet Texture: Regular Texture Diet Activity/Weight Bearing Restrictions: right shoulder. rom. wbat. daily dressing changes. no soaking may shower without bandage - Labs/Radiology CBC Date: 02/24/17 ( weekly, Friday) CMP Date: 02/24/17 ( weekly, Friday) CRP Date: 02/24/17 (Weekly, Friday) Call or Fax Lab and Imaging Results to: Anais Zacarias MD [facility] at fax [phone] - Follow Up Care Current Providers and Referrals: Anais Zacarias MD [Medical Doctor] - 02/27/17 1:00 pm NONE *PRIMARY CARE P,. [Primary Care Provider] - As per Instructions Topher Aguayo MD [Medical Doctor] - Yogi Macedo MD [Medical Doctor] -
[2017-02-19] MEDS: oxyCODONE IR 5 MG TAB PO PRN (14:17)
[2017-02-19 16:47] VITALS: BP 121/66; PULSE 87; TEMP 98.2; O2SAT 98
--- NOTE | 2017-02-19 20:36 | GDS ---
[f rep st] DISCHARGE SUMMARY DISCHARGE DIAGNOSES: 1. Methicillin-sensitive Staphylococcus aureus bacteremia. 2. Severe sepsis secondary to septic right shoulder. 3. Septic right shoulder with methicillin-sensitive Staphylococcus aureus. 4. Acute kidney injury. 5. Acute atrial fibrillation with rapid ventricular response. 6. Chronic cirrhosis. 7. Morbid obesity. 8. Metabolic encephalopathy secondary to acute infection, resolved. 9. Acute upper gastrointestinal bleed secondary to gastric ulceration. HISTORY OF PRESENT ILLNESS: This is a 61-year-old male with a history of cirrhosis who presents with complaints of shoulder pain. For details of patient's initial presentation, please see the history and physical dated 02/14/2017. CONSULTATIVE SERVICES: 1. Orthopedic Surgery. 2. Infectious disease. 3. Cardiology. PROCEDURES: 1. On 02/16/2017 the patient had irrigation and debridement of a right septic shoulder. 2. On 02/18/2017 patient underwent an EGD that showed gastric ulcers. HOSPITAL COURSE BY ISSUE: 1. Severe sepsis secondary to MSSA bacteremia. Patient's source presumed to be his shoulder. Initi ated on IV antibiotics. Surveillance cultures cleared on 02/17/2017. PICC line was placed on 2016. The patient will have antibiotics continuous infusion through 03/17/2017. 2. Right septic shoulder. Patient underwent washout with continuous antibiotics afterwards. Shahzad paez with the outpatient orthopedic surgeon in 10-14 days. 3. Atrial fibrillation with rapid ventricular response. Patient was started on a drip and spontaneo usly converted. He is being discharged on anticoagulation and rate control medications for 1 month p er cardiology's request. He will follow with outpatient cardiology, Dr. Redd for reevaluation of anticoagulation and cardiac stress testing. 4. Acute metabolic encephalopathy. The patient's mental status did clear after treatment of his inf ection and resolution of his sepsis. 5. Cirrhosis. Patient was initiated on Lasix, spironolactone and will be continued on these at disp osition. 6. Acute upper gastrointestinal bleed secondary to gastric ulcers. Patient underwent esophagogastrod uodenoscopy, had cauterization of an actively bleeding ulcer and was started on b.i.d. acid suppressi on medication. The patient will follow with the outpatient air bag stripper in 2-4 weeks for post disposition followup. MEDICATIONS AT THE TIME OF TRANSFER: Please reference med rec printed on 02/19/2017. PENDING STUDIES: At the time of this dictation include blood cultures from 02/14/2017 which are prel iminary Staph aureus methicillin sensitive as well as blood cultures from 02/17/2017 which are prelim inary no growth to date. FOLLOWUP APPOINTMENTS: 1. 02/27/[address] Zacarias from Infectious Disease. 2. In 10-[address] Aguayo from Orthopedic Surgery. 3. In 4-[address] Redd from Cardiology. I spent greater than 30 minutes in the planning and coordination of this discharge. /[id number]/MODL
[2017-02-20 11:57] LABS: HCV QT RNA PCR < 1 IU/mL (<15)
--- NOTE | 2017-02-20 17:18 | ASDISCHSUM ---
Discharge Information Plan Status:Has needs-TBD Medically Cleared to Leave: Discharge Date:02/19/2017 05:15 PM D/C Disposition:Home Health Service ADT D/C Disposition:Home Health Service Projected Discharge Date:02/19/2017 12:00 AM Transportation at D/C: Discharge Delay Reason: Follow-Up Date:02/19/2017 12:00 AM Discharge Slot: Final Diagnosis: Placement Information Referral Type:Home Infusion Referral ID:[id number] Provider Name:[facility] Address 1:[address] Address 2: City:[place] Selection Factors: State:[place] Referral Type:*Home Health Care Services Referral ID:[id number] Provider Name:[facility] Address 1:[address] , [address] Address 2: City:[place] Selection Factors: State:[place] Patient Contact Information Contact Name:WARNER Relationship: Address:[address] City:[facility] Phone: State/Zip Code:[place] [address] Email: Financial Information Financial Class:HMO and PPO Plans Primary Plan Desc:[employer] Primary Plan Number:[id number] Secondary Plan Desc: Secondary Plan Number: Assessment Information [facility] CM Progress Note CM Note CM Note Notes: Pt. is 61-year-old man admitted with new onset Afib and CHF. Pt. has decompensated diastolic heart failure, morbid obesity, cirrhosis, Hep C, and a hx. of a GI bleed. Pt. lives w/ his . Pt's d/c plan is TBD at this time. CM to follow. Date Signed: 02/15/2017 01:36 PM Electronically Signed By:Erika Perera LCSW [facility] CM Progress Note CM Note CM Note Notes: SUHAIL Nowak know today that Pt. will need IV antibiotics at d/c. Details unknown at this time. CM to follow up for d/c POC. Date Signed: 02/15/2017 04:06 PM Electronically Signed By:Erika Perera LCSW [facility] CM Progress Note CM Note CM Note Notes: Chart reviewed, CM spoke w/ Dr. Zacarias, ID doctor to discuss POC. Pt will need 4wks of cefazolin 100ml@200 every q8hrs IV. Tenative d/c scheduled for Friday but unlikely pt will be ready at that time. Pt will most likely need HC and either come to outpatient infusion or referral needs to be made to [facility]. CM to follow. Date Signed: 02/16/2017 02:30 PM Electronically Signed By:JOE Costa [facility] CM Progress Note CM Note CM Note Notes: Sent referral to Nettie soriano on 4 weeks of IV ABX for pt. If pt,chooses to go home with IV ABX, he will need a HC RN set up as well. C/M to follow. Date Signed: 02/17/2017 02:46 PM Electronically Signed By:Ana Campbell LCSW [facility] CM Progress Note CM Note CM Note Notes: Plan is for pt to DC today with continuous IV Ancef infusion through 03/17. [employer] will deliver ABX and supplies to pt's home. [facility] RN will meet pt at home for installation and teaching. Pt will also need PT/OT. Pt's is currently in surgery for DBS and will likely be admitted to [facility]. Pt's son, Robert Betancourt will be staying with pt. Final orders faxed. PICC line report will be faxed to [facility] when available. Date Signed: 02/19/2017 12:22 PM Electronically Signed By:Ana Campbell LCSW Intervention Information Intervention Type:*Incorrect Registration Date of Service:02/14/2017 10:43 PM Patient Type:Inpatient Staff Member:MATEUS Novak, Stephany Hours: Discipline: Severity: Comment:Registered observation, admit order sanjeev vasquez for inpatient status.
== END 2017-02-19 17:15 | disposition home health service (06) | DRG 871 ==
LOC: F2W 15:15 → OBSVTOIN 22:43 → F2N 02-17 23:14 → F1N 02-18 15:54
PROVIDERS: ADMIT Internal Medicine; ATTEND Internal Medicine
PROC: 3E1U38Z Irrigation of Joints using Irrigating Substance, Percutaneous Approach (ICD-10-PCS; principal; 2017-02-15 12:45)
PROC: 0R9 Upper Joints, Drainage (ICD-10-PCS; principal; 2017-02-15 12:45)
PROC: 0W3P8ZZ Control Bleeding in Gastrointestinal Tract, Via Natural or Artificial Opening Endoscopic (ICD-10-PCS; 2017-02-18)
PROC: 0DB68ZX Excision of Stomach, Via Natural or Artificial Opening Endoscopic, Diagnostic (ICD-10-PCS; 2017-02-18)
PROC: 02HV33Z Insertion of Infusion Device into Superior Vena Cava, Percutaneous Approach (ICD-10-PCS; 2017-02-19)
DX: A41.01 Sepsis due to Methicillin susceptible Staphylococcus aureus (principal); G93.41 Metabolic encephalopathy; K25.4 Chronic or unspecified gastric ulcer with hemorrhage; M00.811 Arthritis due to other bacteria, right shoulder; N17.9 Acute kidney failure, unspecified; Z68.41 Body mass index [BMI] 40.0-44.9, adult; I50.32 Chronic diastolic (congestive) heart failure; L03.115 Cellulitis of right lower limb; R65.20 Severe sepsis without septic shock; I48.91 Unspecified atrial fibrillation; E66.01 Morbid (severe) obesity due to excess calories; B19.20 Unspecified viral hepatitis C without hepatic coma; K74.4 Secondary biliary cirrhosis; Z87.891 Personal history of nicotine dependence
CPT/HCPCS: 96365; 96366; 97110-GP; 97116-GP; 97161-GP; 97165-GO; 97530-GO; 97535-GO; C1751; J0171; J0690; J1170; J1650; J1885; J1940; J2250; J2353; J2354; J2405; J2704; J3010; J3370

== ENCOUNTER 2017-07-25 09:00 | Day surgery (SDC) | payer OTHER ==
[2017-07-25] MEDS ORDERED: LR 1,000 ML IV ONE (09:45)
[2017-07-25] MEDS ORDERED: LIDOCAINE 1% 2 ML INJ ID PRN (09:45)
--- NOTE | 2017-07-25 11:28 | PDANEPAE ---
ANE History of Present Illness 61 yo male with h/o esophagitis/PUD for EGD and colonoscopy. ANE Past Medical History - Cardiovascular History Hx Hypertension: Yes Hx Arrhythmias: Yes Hx Chest Pain: No Hx Coronary Artery / Peripheral Vascular Disease: No Hx CHF / Valvular Disease: No Hx Palpitations: No Cardiovascular History Comment: hx of afib in jan, stopped prescription and never renewed it - Pulmonary History Hx COPD: No Hx Asthma/Reactive Airway Disease: No Hx Recent Upper Respiratory Infection: No Hx Oxygen in Use at Home: No Hx Sleep Apnea: No Sleep Apnea Screening Result - Last Documented: Positive Pulmonary History Comment: estela triggers - Neurologic History Hx Cerebrovascular Accident: No Hx Seizures: No Hx Dementia: No - Endocrine History Hx Diabetes: No Hypothyroid: No Obesity: moderate - Renal History Hx Renal Disorders: No - Liver History Hx Hepatic Disorders: Yes Hepatic History Comment: cirrhosis of liver from hep c, eradicated with negative viral load - Neurological & Psychiatric Hx Hx Neurological and Psychiatric Disorders: No - Cancer History Hx Cancer: No - Congenital Disorder History Hx Congenital Disorders: No - GI History GERD: moderate Hx Gastrointestinal Disorders: Yes Gastrointestinal History Comment: GIB 01/2017. esophagitis. PUD - Other Health History Other Health History: wears glasses - Chronic Pain History Chronic Pain: Yes (right shoulder and knees) - Surgical History Prior Surgeries: right shoulder scope for septic shoulder with Repine 01/2017. Lap radha. right knee scope only. tonsillectomy ANE Review of Systems Review of Systems: - Exercise capacity METS (RN): 4 METS - Systems Constitutional: Reports: no symptoms Cardiac: Reports: no symptoms Respiratory: Reports: no symptoms Gastrointestinal: Reports: no symptoms ANE Patient History - Allergies Allergies/Adverse Reactions: No Known Allergies Allergy (Verified 07/07/17 16:42) - Home Medications Home Medications: Famotidine PRN 07/07/17 [Last Taken 07/24/17] Herbals/Supplements -Info Only 07/07/17 [Last Taken Unknown] Pantoprazole Sodium [Protonix 40mg (*)] 07/07/17 [Last Taken 07/24/17] Potassium Chloride 07/07/17 [Last Taken 07/24/17] - NPO status NPO Status: no food or drink >8 hours NPO Since - Liquids (Date): 07/25/17 NPO Since - Liquids (Time): 02:30 NPO Since - Solids (Date): 02/22/18 NPO Since - Solids (Time): 18:00 - Anes Hx Hx Anesthesia Complications (with details): difficult intubation - Smoking Hx Smoking Status: Former smoker (quit > 20 years ago) Marijuana use: No - Alcohol Use Alcohol Use: None (None since Jan 2017) - Family Anes Hx Family Anes Hx: neg - N/A Family Hx Anesthesia Complications: none ANE Labs/Vital Signs - Vital Signs Blood Pressure: 133/69 Heart Rate: 75 Respiratory Rate: 18 O2 Sat (%): 94 Height: 177.8 cm Weight: 120.656 kg ANE Physical Exam - Airway Neck exam: FROM Mallampati Score: Class 4 (short TMD, large tongue) - Pulmonary Pulmonary: clear to auscultation - Cardiovascular Cardiovascular: regular rate and rhythym - ASA Status ASA Status: III ANE Anesthesia Plan Anesthesia Plan: GA with mask Total IV Anesthesia: Yes
[2017-07-25] MEDS ORDERED: GLYCOPYRROLATE 0.2 MG/1 ML VIAL IVP ONE (12:03)
[2017-07-25] MEDS ORDERED: PROPOFOL/EMULSION 500 MG/50 ML BOTTLE IV ONE (12:06)
[2017-07-25] MEDS ORDERED: LIDOCAINE 2% 5 ML SDV ONE ×2 (12:06→12:08)
[2017-07-25] MEDS ORDERED: PROPOFOL 200 MG/20 ML VIAL ONE ×2 (12:09→12:47)
--- NOTE | 2017-07-25 12:10 | PDGENHP ---
History & Physical Chief Complaint: phx gu, cc screening History of Present Illness: phx gastric ulcer, hx alcohol no varices Pertinent Past, Social, Family History: no tobacco, stopped alcohol in 02/16. no fhx cc or polyps Relevant Physical Exam: a+ox3. cta. s1s2. +bs, soft nt Cardiorespiratory Assessment: class 3
[2017-07-25] MEDS ORDERED: NALOXONE HCL 0.4 MG/ML INJ IVP PRN (12:36)
[2017-07-25] MEDS ORDERED: ONDANSETRON 4 MG/2 ML VIAL IVP PRN (12:36)
[2017-07-25] MEDS ORDERED: LR 500 ML IV PRN (12:36)
--- NOTE | 2017-07-25 13:04 | POSTOPPROG ---
Post Op Note Date of Operation: 07/25/17 Surgeon: Darshan Ashby Anesthesiologist: Emma Anesthesia: Other (Specify) (IV general) Pre-op Diagnosis: gastric ulcer, colon cancer screening Post-op Diagnosis: large lesions in antrum s/p bx, Indication: hc and cc screen Procedure: egd and bx, colon yuliana snare, bx and clipx2 Findings: lesins in antrum ? malignancy? lymphoma? -- 5 colon polyps Inf/Abcess present in the surg proc area at time of surgery?: No EBL: Minimal (few ml from bx and snare) Total fluids administered: 300 ml LR Complications: none immediate
--- NOTE | 2017-07-25 13:05 | POSTANESTH ---
Post Anesthetic Evaluation Cardiovascular Status: Other, See Comment (Tachycardic secondary to glycopyrrolate.) Respiratory Status: Normal, Stable Level of Consciousness/Mental Status: Can Participate in Eval, Moderately Sleepy Pain Control: Adequate, Prn Tx Ordered Nausea/Vomiting Control: Adequate, Prn Tx Ordered Complications Possibly Related to Anesthesia: None Noted
--- NOTE | 2017-07-25 13:28 | GIREPORT ---
[facility] Surgical Services - Endoscopy Department Patient Name: Robert Cerrato Procedure Date: 07/25/2017 11:12 AM Patient Type: Outpatient Attending MD/ ER Physician: Gautam Bueno Procedure: Colonoscopy Indications: Screening for colorectal malignant neoplasm Providers: Aristeo Ashby MD Referring MD: Evy Steele Medicines: Total IV Anesthesia (TIVA) Complications: No immediate complications. Description of Procedure: After obtaining informed consent, the scope was passed under direct vis ion. Throughout the procedure, the patient's blood pressure, pulse, and oxyg en saturations were monitored continuously. The Colonoscope with irrigatio n channel was introduced through the anus and advanced to the terminal il eum, with identification of the appendiceal orifice and IC valve. The colono scopy was performed without difficulty. The patient tolerated the procedure w ell. The quality of the bowel preparation was adequate to identify polyps. Findings: The digital rectal exam was normal. A 9 mm polyp was found in the proximal ascending colon. The polyp was semi-sessile. The polyp was removed with a cold snare. Resection and retrieval were complete. Estimated blood loss: 10 mL requiring treatmen t with placement of hemostatic clip(s). A 3 mm polyp was found in the transverse colon. The polyp was sessile. The polyp was removed with a piecemeal technique using a cold biopsy forcep s. Resection and retrieval were complete. Estimated blood loss was minimal . A 6 mm polyp was found in the descending colon. The polyp was semi-sess ile. The polyp was removed with a cold snare. Resection and retrieval were complete. Estimated blood loss was minimal. A 3 mm polyp was found in the descending colon. The polyp was semi-sess ile. The polyp was removed with a piecemeal technique using a cold biopsy forceps. Resection and retrieval were complete. Estimated blood loss wa s minimal. A 2 mm polyp was found in the sigmoid colon. The polyp was sessile. The polyp was removed with a cold biopsy forceps. Resection and retrieval w ere complete. Estimated blood loss was minimal. Many diverticula were found in the sigmoid colon and descending colon. The exam was otherwise without abnormality. Estimated Blood Loss: Estimated blood loss: 10 mL requiring treatment with placement of hemos tatic clip(s). Post Op Diagnosis: - One 9 mm polyp in the proximal ascending colon, removed with a cold s nare. Resected and retrieved. - One 3 mm polyp in the transverse colon, removed piecemeal using a col d biopsy forceps. Resected and retrieved. - One 6 mm polyp in the descending colon, removed with a cold snare. Resected and retrieved. - One 3 mm polyp in the descending colon, removed piecemeal using a col d biopsy forceps. Resected and retrieved. - One 2 mm polyp in the sigmoid colon, removed with a cold biopsy force ps. Resected and retrieved. - Diverticulosis in the sigmoid colon and in the descending colon. - The examination was otherwise normal. Recommendation: - Await pathology results. - My office will call with the pathology result with 5-7 days. If you h ave not heard from my office by 12-14, do not assume the pathology is ramesh l, please call [phone] to get the pathology reults. - Repeat colonoscopy in 3 years for surveillance based on pathology res ults. - Avoid Aspirin and NSAID's for 7-10 days except as used for cardic or stroke prevention. - Patient has a contact number available for emergencies. The signs and symptoms of potential delayed complications were discussed with the pat ient. Return to normal activities tomorrow. Written discharge instructions we re provided to the patient. - Continue present medications. - Discharge patient to home (via cart). - Return to primary care physician as previously scheduled. - Thank you for allowing me to help in your patient's care. Do not hesi freeman to call with any questions. - See EGD for other recommendations Attending Participation: I personally performed the entire procedure. Symone Alberts M.D Aristeo W MD Symone 07/25/2017 1:27:19 PM This report has been signed electronicallyMathew MD Symone Number of Addenda: 0 Note Initiated On: 07/25/2017 11:12 AM Total Procedure Duration Time 0 hours 28 minutes 30 seconds [email or web address]
--- NOTE | 2017-07-25 13:31 | GIREPORT ---
[facility] Surgical Services - Endoscopy Department Patient Name: Robert Cerrato Procedure Date: 07/25/2017 11:11 AM Patient Type: Outpatient Attending MD/ ER Physician: Gautam Bueno Procedure: Upper GI endoscopy Indications: Follow-up of gastric ulcer Providers: Aristeo Ashby MD Referring MD: Evy Steele Medicines: Total IV Anesthesia (TIVA) = IV general Complications: No immediate complications. Estimated blood loss: Minimal. Description of Procedure: After obtaining informed consent, the endoscope was passed under direct vision. Throughout the procedure, the patient's blood pressure, pulse, and oxygen saturations were monitored continuously. The Endoscope was intro duced through the mouth, and advanced to the second part of duodenum. The [facility] er GI endoscopy was accomplished without difficulty. The patient tolerated th e procedure well. Findings: The examined esophagus was normal. A medium-sized, frond-like/villous and polypoid, non-circumferential ma ss with no bleeding and no stigmata of recent bleeding was found in the ga stric antrum. Biopsies were taken with a cold forceps for histology. Estimate d blood loss was minimal. The examined duodenum was normal. The exam was otherwise without abnormality. Estimated Blood Loss: Estimated blood loss was minimal. Post Op Diagnosis: - Normal esophagus. - Abnormal mucosa in multiple area's in the gastric antrum. Biopsied. - Normal examined duodenum. - The examination was otherwise normal. Recommendation: - Await pathology results. - My office will call with the pathology result with 5-7 days. If you h ave not heard from my office by 12-14, do not assume the pathology is ramesh l, please call [phone] to get the pathology results. - Use Protonix (pantoprazole) 40 mg PO daily. Take 30-60 minutes before breakfast. - Perform a colonoscopy today. - Repeat upper endoscopy after studies are complete for surveillance ba sed on pathology results. - Return to primary care physician as previously scheduled. - Thank you for allowing me to help in your patient's care. Do not hesi freeman to call with any questions. Attending Participation: I personally performed the entire procedure. Symone Alberts M.D Aristeo Ashby MD 07/25/2017 1:31:37 PM This report has been signed electronicallyMathew MD Symone Number of Addenda: 0 Note Initiated On: 07/25/2017 11:11 AM [email or web address]}
[2017-07-25] MEDS ORDERED: fentaNYL 100 MCG/2 ML INJ ONE (13:40)
[2017-07-25] MEDS: fentaNYL 100 MCG/2 ML INJ IVP PRN ×3 (13:41→13:56)
[2017-07-25 14:19] VITALS: PULSE 83; RESP 22
[2017-07-25 14:33] VITALS: BP 114/78; TEMP 207.5; O2SAT 97
== END 2017-07-25 15:01 | disposition home or self-care (01) ==
LOC: FSGY 09:00
PROVIDERS: ATTEND Internal Medicine Gastroenterology
PROC: 0DBM8ZX Excision of Descending Colon, Via Natural or Artificial Opening Endoscopic, Diagnostic (ICD-10-PCS; principal; 2017-07-25 12:00)
PROC: 0DBK8ZX Excision of Ascending Colon, Via Natural or Artificial Opening Endoscopic, Diagnostic (ICD-10-PCS; principal; 2017-07-25 12:00)
PROC: 0DB68ZX Excision of Stomach, Via Natural or Artificial Opening Endoscopic, Diagnostic (ICD-10-PCS; principal; 2017-07-25 12:00)
PROC: 0DBN8ZX Excision of Sigmoid Colon, Via Natural or Artificial Opening Endoscopic, Diagnostic (ICD-10-PCS; principal; 2017-07-25 12:00)
PROC: 0DBL8ZX Excision of Transverse Colon, Via Natural or Artificial Opening Endoscopic, Diagnostic (ICD-10-PCS; principal; 2017-07-25 12:00)
DX: Z12.11 Encounter for screening for malignant neoplasm of colon (principal); D12.4 Benign neoplasm of descending colon; K63.5 Polyp of colon; K31.89 Other diseases of stomach and duodenum; K57.30 Diverticulosis of large intestine without perforation or abscess without bleeding; I48.91 Unspecified atrial fibrillation; K74.60 Unspecified cirrhosis of liver; I10 Essential (primary) hypertension; G47.30 Sleep apnea, unspecified; E66.9 Obesity, unspecified; Z68.38 Body mass index [BMI] 38.0-38.9, adult; Z87.891 Personal history of nicotine dependence; Z87.11 Personal history of peptic ulcer disease; Z86.19 Personal history of other infectious and parasitic diseases
CPT/HCPCS: J2704; J3010

== ENCOUNTER 2017-08-24 12:21 | Observation (INO) | payer OTHER ==
[2017-08-24] MEDS ORDERED: HYDROCOD/APAP 5/325 PREPACK#6 BTL TAKEHOME ONE (12:41)
[2017-08-24] MEDS ORDERED: TAMSULOSIN HCL 0.4 MG CAP PO ONE (12:41)
[2017-08-24] MEDS ORDERED: PANTOPRAZOLE SODIUM 40 MG VIAL IVP ONE (12:55)
--- NOTE | 2017-08-24 12:57 | EDPHY ---
H & P Stated Complaint: vomiting blood, red rectal bleeding x 1 hour--gastric ulcer dx 08/22 Time Seen by Provider: 08/24/17 12:40 HPI/ROS: Chief Complaint: Vomiting blood HPI: 61-year-old male with a history of liver disease who is status post EGD 3 days ago at [facility]. Patient had an ultrasound was diagnosed with a gastric ulcer and had biopsies done at that time. Patient has been doing well until this morning when he started vomiting blood. He has vomited 3 times a large amount of blood. Patient states she is also passing blood per rectum. Denies any dark black bowel movements. Is feeling lightheaded but no syncope. Is not having any abdominal pain at this time. Has having some mild shortness of breath. He is currently under the care of OSMAN Muñiz. ROS: 10 point Review of Systems is negative except as noted in the HPI. PMH: Liver disease, gastric ulcer Social History: No smoking, no alcohol, no recreational drug use Family History: non-contributory Physical Exam: Gen: Awake, Alert, No Distress HEENT: Nose: no rhinorrhea Eyes: PERRLA, EOMI Mouth: Moist mucosa Neck: Supple, no JVD Chest: nontender, lungs clear to auscultation Heart: S1, S2 normal, no murmur Abd: Soft, non-tender, no guarding Back: no CVA tenderness, no midline tenderness Ext: no edema, non-tender Skin: no rash Neuro: CN II-XII intact, Sensation grossly intact, Strength 5/5 in bilateral upper and lower extremities - Personal History Current Tetanus/Diphtheria Vaccine: No Current Tetanus Diphtheria and Acellular Pertussis (TDAP): No - Medical/Surgical History Hx Asthma: No Hx Chronic Respiratory Disease: No Hx Diabetes: No Hx Cardiac Disease: No Hx Renal Disease: No Hx Cirrhosis: Yes Hx Alcoholism: No Hx HIV/AIDS: No Hx Splenectomy or Spleen Trauma: No Other PMH: Hepatitis C, Chronic cirrhosis, cholecystectomy, R knee scope, tonsillectomy - Social History Smoking Status: Never smoked Constitutional: Initial Vital Signs Temperature (C) 37.0 C 08/24/17 12:27 Heart Rate 99 08/24/17 12:27 Respiratory Rate 20 08/24/17 12:27 Blood Pressure 78/45 L 08/24/17 12:27 O2 Sat (%) 95 03/25/18 12:27 O2 Delivery Mode Room Air Allergies/Adverse Reactions: No Known Allergies Allergy (Verified 07/07/17 16:42) Home Medications: Medication Instructions Recorded Famotidine PRN 07/07/17 Herbals/Supplements -Info Only 07/07/17 Pantoprazole Sodium [Protonix 40mg 07/07/17 (*)] Potassium Chloride 07/07/17 Medical Decision Making ED Course/Re-evaluation: Case discussed with Dr. Ferguson, on-call for Dr. Gutierrez. He is requesting that the patient be admitted to the Step-Down Unit under the hospitalist. He does not feel that the patient requires endoscopy at this time but he will review. Patient's H&H are appropriate at this time. No active bleeding. He has been given Protonix IV here. Case discussed with Erica Archlueta, hospitalist. Patient will be admitted to the Step-Down Unit under Dr. Apple - Data Points Laboratory Results: Laboratory Results 08/24/17 12:40 08/24/17 12:40 08/24/17 08/24/17 08/24/17 12:53 12:40 12:40 WBC RBC Hgb POC Hgb 11.2 gm/dL L gm/dL (13.7-17.5) Hct POC Hct 33 % L % (40-51) MCV MCH MCHC RDW Plt Count MPV Neut % (Auto) Lymph % (Auto) Nobles % (Auto) Eos % (Auto) Baso % (Auto) Nucleat RBC Rel Count Absolute Neuts (auto) Absolute Lymphs (auto) Absolute Monos (auto) Absolute Eos (auto) Absolute Basos (auto) Absolute Nucleated RBC Immature Gran % Immature Gran # PT Pending INR Pending APTT Pending POC Sodium 143 mEq/L mEq/L (135-145) Sodium POC Potassium 4.1 mEq/L mEq/L (3.3-5.0) Potassium POC Chloride 106 mEq/L mEq/L (97-110) Chloride Carbon Dioxide Anion Gap POC BUN 8 mg/dL mg/dL (7-23) BUN Creatinine POC Creatinine 0.7 mg/dL mg/dL (0.7-1.3) Estimated GFR Glucose POC Glucose 112 mg/dL H mg/dL (70-100) Calcium Patient ABO/Rh Pending Antibody Screen Pending 08/24/17 08/24/17 12:40 12:40 WBC 9.55 10^3/uL H 10^3/uL (3.80-9.50) RBC 4.00 10^6/uL L 10^6/uL (4.40-6.38) Hgb 12.2 g/dL L g/dL (13.7-17.5) POC Hgb Hct 36.5 % L % (40.0-51.0) POC Hct MCV 91.3 fL fL (81.5-99.8) MCH 30.5 pg pg (27.9-34.1) MCHC 33.4 g/dL g/dL (32.4-36.7) RDW 15.7 % H % (11.5-15.2) Plt Count 176 10^3/uL 10^3/uL (150-400) MPV 10.0 fL fL (8.7-11.7) Neut % (Auto) 56.7 % % (39.3-74.2) Lymph % (Auto) 29.9 % % (15.0-45.0) Nobles % (Auto) 9.9 % % (4.5-13.0) Eos % (Auto) 1.9 % % (0.6-7.6) Baso % (Auto) 1.3 % % (0.3-1.7) Nucleat RBC Rel Count 0.0 % % (0.0-0.2) Absolute Neuts (auto) 5.41 10^3/uL 10^3/uL (1.70-6.50) Absolute Lymphs (auto) 2.86 10^3/uL 10^3/uL (1.00-3.00) Absolute Monos (auto) 0.95 10^3/uL H 10^3/uL (0.30-0.80) Absolute Eos (auto) 0.18 10^3/uL 10^3/uL (0.03-0.40) Absolute Basos (auto) 0.12 10^3/uL H 10^3/uL (0.02-0.10) Absolute Nucleated RBC 0.00 10^3/uL 10^3/uL (0-0.01) Immature Gran % 0.3 % % (0.0-1.1) Immature Gran # 0.03 10^3/uL 10^3/uL (0.00-0.10) PT INR APTT POC Sodium Sodium 142 mEq/L mEq/L (135-145) POC Potassium Potassium 3.9 mEq/L mEq/L (3.5-5.2) POC Chloride Chloride 109 mEq/L mEq/L (97-110) Carbon Dioxide 24 mEq/l mEq/l (22-31) Anion Gap 9 mEq/L mEq/L (8-16) POC BUN BUN 9 mg/dL mg/dL (7-23) Creatinine 0.7 mg/dL mg/dL (0.7-1.3) POC Creatinine Estimated GFR > 60 Glucose 108 mg/dL H mg/dL (70-100) POC Glucose Calcium 7.8 mg/dL L mg/dL (8.5-10.4) Patient ABO/Rh Antibody Screen Medications Given: Discontinued Medications Sodium Chloride (Ns) 1,000 mls @ 0 mls/hr IV ONCE ONE PRN Reason: Wide Open Stop: 08/24/17 13:08 Last Admin: 08/24/17 13:00 Dose: 1,000 mls Sodium Chloride (Ns) 1,000 mls @ 0 mls/hr IV ONCE ONE PRN Reason: Wide Open Stop: 08/24/17 13:08 Last Admin: 08/24/17 13:00 Dose: 1,000 mls Pantoprazole Sodium (Protonix) 80 mg IVP EDNOW ONE Stop: 08/24/17 12:56 Last Admin: 08/24/17 13:05 Dose: 80 mg Point of Care Test Results: 08/24/17 12:53 POC Sodium 143 POC Potassium 4.1 POC Chloride 106 POC BUN 8 POC Creatinine 0.7 POC Glucose 112 H Departure - Departure Disposition: [facility] Inpatient Acute Clinical Impression: Upper GI bleed Condition: Serious Referrals: Mary Steele MD [Primary Care Provider] - As per Instructions
[2017-08-24 13:00] LABS: PLATELET COUNT 176 10^3/uL (150-400)
[2017-08-24] MEDS ORDERED: NS 1,000 ML IV ONE ×3 (13:07→14:01)
[2017-08-24 13:18] LABS: INR 1.78 (0.83-1.16); PROTIME(PATIENT) 20.8 SEC (12.0-15.0)
[2017-08-24] MEDS ORDERED: ONDANSETRON 4 MG/2 ML VIAL IVP PRN ×2 (13:19→14:47)
--- NOTE | 2017-08-24 14:09 | PDANEPAE ---
ANE History of Present Illness UPPER GI BLEEDING, HX OF CIRRHOSIS ANE Past Medical History - Cardiovascular History Hx Hypertension: Yes Hx Arrhythmias: Yes Hx Chest Pain: No Hx Coronary Artery / Peripheral Vascular Disease: No Hx CHF / Valvular Disease: No Hx Palpitations: No Cardiovascular History Comment: hx of afib in jan, stopped prescription and never renewed it, reports manual training teacher did not prescribe it at las visit. Anemia - Pulmonary History Hx COPD: No Hx Asthma/Reactive Airway Disease: No Hx Recent Upper Respiratory Infection: No Hx Oxygen in Use at Home: No Hx Sleep Apnea: No Pulmonary History Comment: estela triggers - Neurologic History Hx Cerebrovascular Accident: No Hx Seizures: No Hx Dementia: No - Endocrine History Hx Diabetes: No Hypothyroid: No Hyperthyroid: No Obesity: moderate - Renal History Hx Renal Disorders: No - Liver History Hx Hepatic Disorders: Yes Hepatic History Comment: cirrhosis of liver from hep c, eradicated with negative viral load , Elevated INR today - Neurological & Psychiatric Hx Hx Neurological and Psychiatric Disorders: No - Cancer History Hx Cancer: No - Congenital Disorder History Hx Congenital Disorders: No - GI History GERD: no Hx Gastrointestinal Disorders: Yes Gastrointestinal History Comment: GIB 01/2017. esophagitis. PUD - Other Health History Other Health History: wears glasses - Chronic Pain History Chronic Pain: Yes (right shoulder and knees) - Surgical History Prior Surgeries: right shoulder scope for septic shoulder with Repine 01/2017. Lap radha. right knee scope only. tonsillectomy ANE Review of Systems Review of Systems: - Exercise capacity METS (RN): 4 METS ANE Patient History - Allergies Allergies/Adverse Reactions: No Known Allergies Allergy (Verified 07/07/17 16:42) - Home Medications Home Medications: Famotidine [Pepcid 20 MG (*)] 20 mg PO BID 08/24/17 [Last Taken 08/23/17] Herbals/Supplements -Info Only 1 ea PO DAILY 08/24/17 [Last Taken 08/23/17] Pantoprazole Sodium [Protonix 40mg (*)] 40 mg PO BID 08/24/17 [Last Taken ] Potassium Chloride 20 meq PO DAILY 08/24/17 [Last Taken 08/23/17] - Smoking Hx Smoking Status: Never smoked - Family Anes Hx Family Hx Anesthesia Complications: none ANE Labs/Vital Signs - Labs Result Diagrams: 08/24/17 12:40 08/24/17 12:40 - Vital Signs Blood Pressure: 111/56 Heart Rate: 80 Respiratory Rate: 16 O2 Sat (%): 99 Weight: 113.398 kg ANE Physical Exam - Airway Neck exam: FROM Mallampati Score: Class 2 Mouth exam: poor dentition (Upper front caps) - ASA Status ASA Status: III, E ANE Anesthesia Plan Anesthesia Plan: general endotracheal anesthesia
[2017-08-24] MEDS ORDERED: REMIFENTANIL HCL 1 MG VIAL ONE (14:15)
[2017-08-24] MEDS ORDERED: PROPOFOL/EMULSION 500 MG/50 ML BOTTLE IV ONE (14:15)
[2017-08-24] MEDS ORDERED: ROCURONIUM 50 MG/5 ML VIAL ONE (14:16)
[2017-08-24] MEDS ORDERED: DEXAMETHASONE 4 MG/ML VIAL ONE (14:16)
[2017-08-24] MEDS ORDERED: SUCCINYLCHOLINE CHLORIDE 200 MG/10 ML SYR IVP ONE (14:18)
[2017-08-24] MEDS ORDERED: PHENYLEPHRINE HCL 100 MCG/ML SYR ONE (14:27)
--- NOTE | 2017-08-24 14:29 | GHP ---
[f rep st] HISTORY AND PHYSICAL DATE OF ADMISSION: 08/24/2017 CHIEF COMPLAINT: Hematemesis. HISTORY OF PRESENT ILLNESS: A 61-year-old male with a history of hepatitis C cirrhosis, followed keyla kelli by outpatient gastroenteritis, most recently for ulcer disease. The patient reports feeling fin e after his most recent EGD, which was of this week, 72 hours ago. Returned home, was trudy stern normal p.o. intake without complication. Arose this morning, again feeling normally, and then deve loped a sensation of needing to dry heave. When he started vomiting, he was vomiting abdi blood. H cornelius then passed 4 stools that he described as maroon diarrhea and then vomited for a 2nd time. When he developed the 2nd episode of emesis that appeared to be abdi blood, he decided to come to the emerg ency department for evaluation. In route, he was feeling dizzy, lightheaded, as if he was going to p ass out. In the emergency department, he is denying chest pain. Reports some shortness of breath. Remains dizzy. Has been treated for nausea, so is not describing active nausea. Denies any abdomina l discomfort. Has not restooled since arrival to the emergency department. Denies fevers, chills, v ision changes, headaches, or myalgias. PAST MEDICAL HISTORY: 1. Cirrhosis secondary to hepatitis C. 2. Hepatitis C, status post treatment. 3. Gastric ulcer disease, receiving therapy. SOCIAL HISTORY: Negative for tobacco. The patient quit drinking any alcohol January of 2017. Den ies illicit drugs or marijuana. FAMILY HISTORY: Negative for heart disease or cancers. ADVANCED DIRECTIVES: Patient is full code, full tube. REVIEW OF SYSTEMS: A 10-point review of systems is negative with the exception of that reported in t he HPI. PHYSICAL EXAMINATION: VITAL SIGNS: Blood pressure 78/45 at presentation, heart rate 105, respirator y rate 10, saturating 95% on room air, 37.0. GENERAL: This is a healthy-appearing middle-aged male in no acute distress. HEENT: Exam is notable for dry blood on his lips and chin. Mucous membranes appear dry. Eye exam is negative for any icterus. CARDIAC: Patient is tachycardic but regular. PU LMONARY: He is clear to auscultation bilaterally. GASTROINTESTINAL: Positive bowel sounds. Abdome n is soft and nontender in all 4 quadrants. MUSCULOSKELETAL: Negative for any lower extremity edema . SKIN: Exam is negative for any rashes. NEUROLOGIC: He is alert and oriented x3. PSYCHIATRIC: He is pleasant and cooperative on interview and examination. LABORATORY DATA: White count 9.55, hemoglobin 12.2, platelet count of 176. INR 1.7. Creatinine 0.7 . Telemetry, which I personally interpreted looked like sinus tachycardia. ASSESSMENT AND PLAN: This is a 61-year-old male presenting with hematemesis and bright red blood per rectum. 1. Acute upper gastrointestinal bleed. Based on the blood he is passing in his vomitus and the desc ription of his stools, I suspect this is likely an arterial bleed secondary to the biopsies from his esophagogastroduodenoscopy 72 hours ago. Gastroenterology has been consulted and will be taking the patient emergently to esophagogastroduodenoscopy under anesthesia. Hopeful we can identify the activ nakia bleeding vessel and intervene. Keep the patient n.p.o. He has already received aggressive fluid resuscitation and will continue to do so. He has been typed and screened and initiated on high-dose IV proton pump inhibitor. 2. Hypotension secondary to acute gastrointestinal bleed. Will need to continue aggressive fluid re suscitation. Can recheck a hemoglobin and prep the patient for transfusion if necessary. 3. Anemia secondary to acute blood loss. Again, patient has been typed and screened from the emerge ncy department. We can transfuse if his hemoglobin drops below 9. 4. Cirrhosis secondary to hepatitis C. Based on the patient's description, it sounds as if he has b een well compensated, followed closely by Gastroenterology. 5. Prophylaxis: Lovenox is contraindicated in the setting of acute gastrointestinal bleed. DIET: N.p.o. for EGD. DISPOSITION: I expect in less than 2 midnights as the patient remains stable and the identifiable so urce of bleeding is identified on EGD. I have discussed the case with Dr. Ferguson. He will be taking the patient emergently to EGD for v isualization. /[id number]/MODL
[2017-08-24] MEDS ORDERED: ONDANSETRON 4 MG/2 ML VIAL ONE (14:40)
[2017-08-24] MEDS ORDERED: NALOXONE HCL 0.4 MG/ML INJ IVP PRN (14:47)
--- NOTE | 2017-08-24 14:49 | GCON ---
[f rep st] CONSULTATION GI CONSULTATION DATE OF CONSULTATION: 08/24/2017 REFERRING PHYSICIAN: Asiya Apple MD REASON FOR CONSULTATION: Hematemesis, melena and post hemorrhagic anemia. HISTORY OF PRESENT ILLNESS: The patient is a 61-year-old gentleman with known liver disease, who is status post an EGD with endoscopic ultrasound and biopsies for a chronic gastric ulceration. Patholo gy is still pending on this. Patient was doing well until early this morning, approximately 7 a.m., when he had several dry heaves, then followed by hematemesis and passage of several maroon stools. Magaly shields came to the emergency room, where he threw up approximately 1 L of maroon clotted blood. He has foote d nothing to eat today. He was on famotidine 20 mg p.o. p.r.n. heartburn. ALLERGIES: He has no known drug allergies. PAST MEDICAL HISTORY: Significant for hepatitis C with compensated cirrhosis. PAST SURGICAL HISTORY: Significant for cholecystectomy, right knee scope and tonsillectomy. FAMILY HISTORY: Negative for liver disease or peptic ulcer disease. SOCIAL HISTORY: He is . He and his live in [place]. He is employed at [employer]. He does not drink alcohol or smoke tobacco. REVIEW OF SYSTEMS: Other than hematemesis, melena and fatigue today, were negative for comprehensive review of systems. PHYSICAL EXAMINATION: VITAL SIGNS: On my examination, temperature is 36.4 Celsius, pulse 80 regular , blood pressure 111/56, respiratory rate 16, O2 saturation 99% on room air. GENERAL: Well-develope d, well-nourished man in moderate distress in ER bed. INTEGUMENT: Clear. HEENT: Head atraumatic, normocephalic. Pupils equally round, reactive to light. EOMs are intact. Sclerae nonicteric. Nare s patent. Mucous membranes moist. Dentition good. NECK: Supple. Trachea was midline. LYMPHATICS : No palpable cervical or axillary adenopathy. PULMONARY: Lungs clear to percussion and auscultati on. CARDIOVASCULAR: Regular rhythm and rate. Normal S1, S2 without murmur. Peripheral pulses stro ng bilaterally. No pedal edema. GASTROINTESTINAL: Abdomen supple. Positive bowel sounds. No live r or spleen tip palpable. No masses or tenderness noted. EXTREMITIES: Without deformity. NEUROLOG IC: Patient was alert, oriented x3. There are no focal neurologic deficits. LABORATORY DATA: White count is 9.55, hemoglobin 12.2, hematocrit 36.5, platelets were 176,000. Pro time 20.8, INR 1.78, PTT 42.6. Electrolytes were normal. IMPRESSION: Acute upper gastrointestinal bleed in a gentleman with hepatitis C with compensated cirr hosis and recent biopsy of chronic gastric ulcer, rule out bleeding from biopsy site versus Sara-W eiss tear versus esophageal variceal bleed (less likely). RECOMMENDATIONS: Urgent esophagogastroduodenoscopy today. Due to the patient's acute GI bleed and u nderlying cirrhosis, I think patient is at higher risk of complication. Therefore, we will perform t his procedure with general anesthesia and endotracheal intubation to protect for intra-procedure aspi ration. /[id number]/MODL
--- NOTE | 2017-08-24 15:04 | POSTANESTH ---
Post Anesthetic Evaluation Cardiovascular Status: Similar to Pre-Op Cond Respiratory Status: Normal, Stable Level of Consciousness/Mental Status: Can Participate in Eval Pain Control: Adequate, Prn Tx Ordered Nausea/Vomiting Control: Adequate, Prn Tx Ordered Complications Possibly Related to Anesthesia: None Noted (awaiting FFP transfusion)
[2017-08-24] MEDS: NS 1,000 ML IV SCH (17:24)
[2017-08-24] MEDS: PANTOPRAZOLE SODIUM 40 MG VIAL IVP SCH ×2 (17:24→21:47)
[2017-08-24] MEDS ORDERED: PANTOPRAZOLE SODIUM 40 MG VIAL IVP SCH (18:30)
[2017-08-25] MEDS: NS 1,000 ML IV SCH (01:18)
[2017-08-25] MEDS ORDERED: GABAPENTIN 100 MG CAP PO ONE (02:51)
[2017-08-25] MEDS: PANTOPRAZOLE SODIUM 40 MG VIAL IVP SCH ×2 (03:06→09:22)
[2017-08-25 04:44] VITALS: O2SAT 99
[2017-08-25 04:57] LABS: PLATELET COUNT 85 10^3/uL (150-400)
[2017-08-25 07:31] VITALS: BP 113/73; PULSE 87; RESP 10; TEMP 97.9
--- NOTE | 2017-08-25 09:37 | ASMTCMCOM ---
CM Note CM Note Notes: 61yr old male admitted for Hematemesis, Upper GIB, Hypotension, Anemia. He has a Hx of Hep C Cirrhosis and gastric ulcer dis. Patient had an endoscopy. He lives with his . No discharge needs anticipated. Date Signed: 08/25/2017 09:37 AM Electronically Signed By:Donita Hilliard LCSW
--- NOTE | 2017-08-25 14:39 | GDS ---
[f rep st] DISCHARGE SUMMARY DISCHARGE DIAGNOSES: 1. Acute upper gastrointestinal bleed secondary to biopsy site. 2. Anemia secondary to acute blood loss. 3. Hypotension secondary to acute blood loss. 4. Cirrhosis secondary to hepatitis C. HISTORY OF PRESENT ILLNESS: A 61-year-old male with known history of hepatitis C and cirrhosis who h as had ulcers followed closely in the outpatient setting by Gastroenterology. He had an EGD with bio psies performed 48 hours prior to his presentation. On the morning of presentation developed volumino us bright red blood vomit. For details of the patient's initial presentation, please see the history and physical dated 08/24/2017. CONSULTATIVE SERVICES: Include gastroenterology. PROCEDURES: Include EGD on 08/24/2017. Source of bleeding was visualized. A clip that was not held in proper placement after his previous biopsies. Patient was re clipped and stabilized. HOSPITAL COURSE BY ISSUE: 1. Acute upper GI bleed secondary to arterial bleed from dislodged clip from EGD biopsy. Patient wa s emergently taken under anesthesia to EGD. Had stabilization and re clipping of the site and hemody namic stability reestablished. Patient will follow up with GI of the [facility] in the next several wee ks for post disposition followup. 2. Anemia secondary to acute blood loss secondary to bleed described above. Patient's baseline hemo globin was 14. Through the course of his hospital stay, dropped to 9.3 and has remained in the 9's f or over 12 hours without any recurrent bleeding. Again, he will follow with his outpatient primary c are and Gastroenterology of [facility] for followup. 3. Hypotension secondary to acute GI bleed. Patient received aggressive fluid resuscitation. Systo lic blood pressures are in the 110s to 130s on the morning of disposition, and the patient is asympto matic. MEDICATIONS AT THE TIME OF DISPOSITION: Please reference med rec printed on 08/25/2017. FOLLOWUP APPOINTMENTS: 1. Include with GI of [facility] in the next several weeks for post biopsy followup. 2. With his primary care provider in the next 7-10 days for CBC check and post disposition followup. PENDING STUDIES: At the time of this dictation are none. TIME SPENT: I spent greater than 30 minutes in the planning and coordination of this discharge. /[id number]/MODL
== END 2017-08-25 10:31 | disposition home or self-care (01) ==
LOC: F2N 15:43
PROVIDERS: ADMIT Hospitalist; ATTEND Hospitalist
PROC: 30233K1 Transfusion of Nonautologous Frozen Plasma into Peripheral Vein, Percutaneous Approach (ICD-10-PCS; principal; 2017-08-24 14:15)
PROC: 30233P1 Transfusion of Nonautologous Frozen Red Cells into Peripheral Vein, Percutaneous Approach (ICD-10-PCS; principal; 2017-08-24 14:15)
DX: K91.840 Postprocedural hemorrhage of a digestive system organ or structure following a digestive system procedure (principal); T82.528A Displacement of other cardiac and vascular devices and implants, initial encounter; D62 Acute posthemorrhagic anemia; K74.60 Unspecified cirrhosis of liver; B19.20 Unspecified viral hepatitis C without hepatic coma; K28.7 Chronic gastrojejunal ulcer without hemorrhage or perforation; I10 Essential (primary) hypertension; G47.33 Obstructive sleep apnea (adult) (pediatric)
CPT/HCPCS: G0378; P9016; P9017; P9040; 82947-QW; 96374; J0330; J1100; J2370; J2405; J2704

== ENCOUNTER → 2018-01-12 | Outpatient (CLI) | payer OTHER | LOC: CIMAGING 13:34 | PROVIDERS: ATTEND Internal Medicine | DX: M25.552 Pain in left hip (principal); I48.91 Unspecified atrial fibrillation; K74.60 Unspecified cirrhosis of liver | CPT/HCPCS: 73502-PO ==